=== PATIENT | female | born 1945 | race Caucasian/White ===

== ENCOUNTER 2016-11-23 13:20 | Inpatient (IN) | payer OTHER ==
[2016-11-23] MEDS ORDERED: ASPIRIN EC 325 MG TAB PO ONE ×2 (13:28→13:35)
[2016-11-23] MEDS ORDERED: NS 1,000 ML IV ONE (13:28)
[2016-11-23] MEDS ORDERED: DIAZEPAM 5 MG TAB PO ONE (13:28)
[2016-11-23] MEDS ORDERED: diphenhydrAMINE 25 MG CAP PO ONE ×2 (13:28→13:35)
[2016-11-23] MEDS ORDERED: FAMOTIDINE 20 MG TAB PO ONE (13:28)
[2016-11-23] MEDS ORDERED: FAMOTIDINE 20 MG TAB ONE (13:35)
[2016-11-23] MEDS ORDERED: DIAZEPAM 5 MG TAB ONE (13:35)
--- NOTE | 2016-11-23 13:39 | CPEKG ---
Heart Rate: 71 RR Interval: 845 P-R Interval: 200 QRSD Interval: 90 QT Interval: 428 QTC Interval: 466 P [place]: 41 QRS [place]: -14 T Wave [place]: 67 EKG Severity - ABNORMAL ECG - EKG Impression: SINUS RHYTHM EKG Impression: LEFT VENTRICULAR HYPERTROPHY Electronically Signed By: Bryon Bunch 23-Nov-2016 14:20:18
[2016-11-23 13:43] LABS: HEMATOCRIT 46.4 % (38.0-47.0); HEMOGLOBIN 15.7 g/dL (12.6-16.3); MEAN CELL HEMOGLOBIN 31.8 pg (27.9-34.1); MEAN CELL HEMOGLOBIN CONCENTR. 33.8 g/dL (32.4-36.7); MEAN CELL VOLUME 94.1 fL (81.5-99.8); RED BLOOD CELL COUNT 4.93 10^6/uL (4.18-5.33)
[2016-11-23] MEDS ORDERED: MIDAZOLAM 2 MG/2 ML VIAL ONE (13:54)
[2016-11-23] MEDS ORDERED: fentaNYL 100 MCG/2 ML INJ ONE (13:54)
[2016-11-23] MEDS ORDERED: LIDOCAINE 1% 30 ML SDV ONE (13:54)
[2016-11-23] MEDS ORDERED: VERAPAMIL 5 MG/2 ML VIAL ONE (13:54)
[2016-11-23] MEDS ORDERED: HEPARIN 10,000 UNIT/10 ML MDV ONE (13:54)
[2016-11-23] MEDS ORDERED: IOPAMIDOL (ISOVUE-370) 150 ML BTL IV ONE (13:55)
--- NOTE | 2016-11-23 13:55 | PDGENHP ---
History and Physical - Chief Complaint Severe AI/Moderate - History of Present Illness 71F with symptomatic severe AI and moderate here today for a [facility] to evaluate coronary arteries in preparation for AVR on 11/24/[address] Garduno. Pt states her health has not worsened since last seen in the clinic on 11/08/16. She states she is still easily fatigued when she takes care of things at home. She occasionally experiences light-headedness and her legs continue to have swelling. She denies syncope, CP, palpitations, abdominal pain, worsening edema. History Information - Allergies/Home Medication List Allergies/Adverse Reactions: erythromycin base Allergy (Verified 11/11/16 16:42) NSAIDS (Non-Steroidal Anti-Inflamma Allergy (Verified 11/11/16 16:42) Home Medications: Beclomethasone Qvar 80 [Qvar 80 (*)] 2 puffs IH BID 11/11/16 [Last Taken ] Herbals/Supplements -Info Only 1 ea PO DAILY 11/11/16 [Last Taken Unknown] Losartan Potassium [Cozaar 50 mg (*)] 100 mg PO DAILY 11/11/16 [Last Taken 11/23] Montelukast Sodium [Singulair 10 mg (*)] 10 mg PO DAILY@1800 11/11/16 [Last Taken 11/22/16] Tiotropium Inhaler [Spiriva Handihaler] 18 mcg IH DAILY 11/11/16 [Last Taken ] amLODIPine BESYLATE [Norvasc 5 mg (*)] 5 mg PO DAILY 11/11/16 [Last Taken ] traMADol [Ultram 50 mg (*)] 25 mg PO BID PRN 11/11/16 [Last Taken 11/23/16] Estrogens,Conjugated [Premarin Vaginal (*)] 1 elizabeth VG TUSA 11/23/16 [Last Taken 11/22/16] LORazepam [Ativan (*)] 0.5 mg PO HS 11/23/16 [Last Taken 11/22/16] I have personally reviewed and updated: medical history, social history, surgical history - Past Medical History asthma, CHF (class III), hypertension Additional medical history: varicose veins, spinal stenosis - Surgical History Reports: vascular surgery (vein stripping) Additional surgical history: D&C - Family History Positive for: CAD, myocardial infarction - Social History Smoking Status: Never smoked Alcohol Use: None Drug Use: None Review of Systems ROS: 10pt was reviewed & negative except for what was stated in HPI & below Constitutional: Reports: other (fatigue) EENMT: Reports: no symptoms Cardiac: Reports: edema, lightheadedness Respiratory: Reports: no symptoms Gastrointestinal: Reports: no symptoms Genitourinary: Reports: no symptoms Muscolosketal: Reports: muscle pain (BLE) Skin: Reports: no symptoms Neurological: Reports: no symptoms Hematologic/Lymphatic: Reports: no symptoms Physical Exam Constitutional: no apparent distress, appears nourished, not in pain Eyes: anicteric sclera Ears, Nose, Mouth, Throat: moist mucous membranes, hearing normal, ears appear normal Cardiovascular: regular rate and rhythym, systolic murmur, edema Respiratory: no respiratory distress, no rales or rhonchi, clear to auscultation , expiratory wheeze Gastrointestinal: soft, non-tender abdomen, No tenderness Genitourinary: no bladder fullness Skin: warm, normal color Musculoskeletal: full muscle strength Neurologic: AAOx3 Psychiatric: interacting appropriately, not anxious, not encephalopathic, thought process linear Lab Data & Imaging Review 11/23/16 13:30 11/23/16 13:30 WBC 7.89 10^3/uL (3.80-9.50) 11/23/16 13:30 RBC 4.93 10^6/uL (4.18-5.33) 11/23/16 13:30 Hgb 15.7 g/dL (12.6-16.3) 11/23/16 13:30 Hct 46.4 % (38.0-47.0) 11/23/16 13:30 MCV 94.1 fL (81.5-99.8) 11/23/16 13:30 MCH 31.8 pg (27.9-34.1) 11/23/16 13:30 MCHC 33.8 g/dL (32.4-36.7) 11/23/16 13:30 RDW 13.0 % (11.5-15.2) 11/23/16 13:30 Plt Count 254 10^3/uL (150-400) 11/23/16 13:30 Visualized and Interpreted Chest x-ray results: Yes Chest X-Ray results: no infiltrate Visualized and Interpreted EKG results: Yes EKG Interpretation: Positive for: LVH Assessment & Plan Assessment: 71F with known severe AI/moderate admitted today for C - f/u cath results - will pre-op for 11/24/15
[2016-11-23 13:56] LABS: INR 0.96 (0.83-1.16); PROTIME(PATIENT) 12.7 SEC (12.0-15.0)
[2016-11-23 14:11] LABS: ANION GAP 13 mEq/L (8-16); CALCIUM 9.7 mg/dL (8.5-10.4); CARBON DIOXIDE 26 mEq/l (22-31); CHLORIDE 99 mEq/L (97-110); CHOLESTEROL 310 mg/dL (140-220); CHOLESTEROL/HDL RATIO 2.98 RATIO (1.00-4.44); CREATININE 0.7 mg/dL (0.6-1.0); GLOMERULAR FILTRATION RATE > 60; GLUCOSE 91 mg/dL (70-100); HIGH DENSITY LIPOPROTEIN 104 mg/dL (40-85); LDL/HDL RATIO 1.82 RATIO (1.00-3.22); LOW DENSITY LIPOPROTEIN 189 mg/dL (80-100); MAGNESIUM 1.9 mg/dL (1.6-2.3); NON-HIGH DENSITY LIPOPROTEIN 206 mg/dL (90-129); POTASSIUM 4.1 mEq/L (3.5-5.2); SODIUM 138 mEq/L (134-144); TRIGLYCERIDE 86 mg/dL (35-135); VERY LOW DENSITY LIPOPROTEINS 17 mg/dL (8-25)
[2016-11-23 14:37] LABS: HEMOGLOBIN A1C 5.4 % (4.0-6.0)
[2016-11-23] MEDS ORDERED: ONDANSETRON 4 MG/2 ML VIAL IVP PRN (14:55)
[2016-11-23] MEDS ORDERED: ATROPINE SULFATE 1 MG/10 ML SYR IVP PRN (14:55)
[2016-11-23] MEDS ORDERED: NITROGLYCERIN 0.4 MG BTL SL PRN (14:55)
--- NOTE | 2016-11-23 15:02 | PDDXCAT ---
Diagnostic Cath Note - . Date: 11/23/16 Materials Clerk: Jessica Indication: other (Preoperative prior to planned AVR.) - Procedure Access: right groin Procedure: left heart catheterization, coronary angiography, left ventriculogram - Materials Left Heart Cath size: 5F (5F catheter with 6F sheath.) Left Heart Cath materials: JL3.5, JR4.0, pigtail - Findings-Left Heart Catheterization LM: Normal. LAD: Single principal diagonal branch.50% mid LAD lesion immediately after the diagonal branch. LCX: 2 OM branches. Normal coronary appearance. RCA: Large caliber. Dominant. Large PL. Minimal luminal irregularities. EDP: 154/10/14 mmHg. LVEF: 55%. Normal wall motion. - Findings-Right Heart Catheterization AO: 142/53 mmHg. Complications: None. Estimated blood loss: <50ml Closure method: manual pressure Assessment: 50% mid LAD lesion. Known severe AI. Plan: Planned AVR. Consider ESCOBEDO graft.
[2016-11-23] MEDS ORDERED: ATROPINE SULFATE 1 MG/10 ML SYR ONE (15:03)
[2016-11-23] MEDS ORDERED: traMADol 50 MG TAB PO PRN (17:33)
[2016-11-23] MEDS ORDERED: SENNOSIDES/DOCUSATE SODIUM TAB PO ONE ×2 (18:00)
[2016-11-23] MEDS: MONTELUKAST SODIUM 10 MG TAB PO SCH (18:35)
--- NOTE | 2016-11-23 18:47 | DX ---
Chest, One View Portable, November 23, 2016 at 1359 hours History: Preop open heart surgery. Comparison: Outside [facility] CT chest November 11, 2016 images. Report not available. Findings: Cardiac silhouette is normal in size. Atherosclerotic tortuous aorta. Nodular opacity i n the left lower lobe is partially visualized. No pneumothorax. No pleural effusion. Elevated left hemidiaphragm. No congestive heart failure. Impressions 1. No pneumothorax. 2. Nodular opacity in the left lower lobe persists. Follow up recommended. 3. Several pulmonary nodules are identified on the previous outside CT, and, therefore, a follow-up CT chest in three months is recommended. Please see prior CT report from [facility].
--- NOTE | 2016-11-23 19:50 | US ---
Bilateral Duplex Carotid Sonography Clinical Indications: Preoperative open heart surgery. Technique: The cervical portions of the carotid and vertebral arteries were imaged and interrogated by color and pulsed Doppler. Spectral analysis was performed. Cine clips are stored on PACS. Comparison Study: None relevant. Findings Right Carotid Artery: Right ICA peak systolic velocity = 80 cm/sec Right CCA peak systolic velocity = 60 cm/sec Right ECA peak systolic velocity = 52 cm/sec Right ICA/CCA systolic velocity ratio = 1.3 Velocities correlate to 0-49 % diameter stenosis of the origin of the right internal carotid artery w ith respect to the normal distal internal carotid artery. No significant plaque Left Carotid Artery: Left ICA peak systolic velocity = 119 cm/sec Left CCA peak systolic velocity = 67 cm/sec Left ECA peak systolic velocity = 52 cm/sec Left ICA/CCA systolic velocity ratio = 1.8 Velocities correlate to 0-49 % diameter stenosis of the origin of the left internal carotid artery wi th respect to the normal distal internal carotid artery. Tortuosity but no significant plaque. Vertebral Arteries: Antegrade flow is shown by pulsed Doppler of each vertebral artery. Impression: 1. There is no evidence of a flow-limiting carotid stenosis. 2. Velocities correlate to 0-49 % diameter stenosis of the origin of the right internal carotid arter y. 3.Velocities correlate to 0-49 % diameter stenosis of the origin of the left internal carotid artery. No significant plaque is present. Measurement of carotid stenosis is based on velocity parameters that correlate the residual internal carotid diameter with [place] Symptomatic Carotid Endarterectomy Trial (NASCET) based stenosis levels.
[2016-11-23] MEDS ORDERED: CHLORHEXIDINE GLUC HIBICLENS 118 ML BTL TP SCH ×2 (21:00)
[2016-11-23] MEDS ORDERED: MUPIROCIN 2% 22 GM OINT NS SCH (21:00)
[2016-11-23] MEDS: BECLOMETHASONE QVAR 80 MDI IH SCH (21:20)
[2016-11-23] MEDS: LORazepam 0.5 MG TAB PO SCH (22:33)
[2016-11-23] MEDS: MUPIROCIN 2% 22 GM OINT NS SCH (22:57)
[2016-11-24] MEDS ORDERED: CITRATE DEXTROSE SOLN 500 ML BAG MISC ONE ×2 (06:00)
[2016-11-24] MEDS ORDERED: niCARdipine/NACL 200 ML IV ONE ×2 (06:00)
[2016-11-24] MEDS ORDERED: NOREPINEPHRINE BITARTRATE 16 MG in NS 250 ML IV ONE (06:00)
[2016-11-24] MEDS ORDERED: ceFAZolin 2 GM/DEXTROSE 100 ML IV ONE ×2 (06:00)
[2016-11-24] MEDS ORDERED: VERAPAMIL 5 MG, NITROGLYCERIN 2.5 MG, HEPARIN 500 UNIT, SODIUM BICARBONATE 0.2 MEQ in L... MISC ONE (06:00)
[2016-11-24] MEDS ORDERED: MANNITOL 25% 12.5 GM/50 ML VIAL IV ONE ×2 (06:00)
[2016-11-24] MEDS ORDERED: SODIUM BICARBONATE 20 MEQ, LIDOCAINE 1% 10 ML in NORMOSOL-R 1,000 ML MISC ONE ×2 (06:00)
[2016-11-24] MEDS ORDERED: NS 1,000 ML IV ONE ×2 (06:00)
[2016-11-24] MEDS ORDERED: PHENYLEPHRINE HCL 50 MG in NS 250 ML IV ONE (06:00)
[2016-11-24] MEDS ORDERED: INSULIN REGULAR HUMAN 100 UNIT in NS 100 ML IV ONE (06:00)
[2016-11-24] MEDS ORDERED: AMINOCAPROIC ACID 5 GM/20 ML VIAL IV ONE ×2 (06:00)
[2016-11-24] MEDS ORDERED: PROTAMINE SULFATE 50 MG/5 ML VIAL IVP ONE (06:32)
[2016-11-24] MEDS ORDERED: POTASSIUM Cl (KCl) 20 MEQ/50 ML BAG IV ONE (06:33)
[2016-11-24] MEDS ORDERED: AMINOCAPROIC ACID 5 GM/20 ML VIAL ONE ×2 (06:33→06:35)
[2016-11-24] MEDS ORDERED: CALCIUM CHLORIDE 1 GM/10 ML INJ ONE ×2 (06:33→06:35)
[2016-11-24] MEDS ORDERED: MILRINONE/DEXTROSE/100 ML BAG IV ONE (06:33)
[2016-11-24] MEDS ORDERED: NA BICARBONATE 50 MEQ/50 ML VIAL ONE (06:33)
[2016-11-24] MEDS ORDERED: HEPARIN 10,000 UNIT/10 ML MDV ONE (06:34)
[2016-11-24] MEDS ORDERED: ceFAZolin 1 GM VIAL ONE (06:34)
[2016-11-24] MEDS ORDERED: ADENOSINE 6 MG/2 ML VIAL ONE (06:34)
[2016-11-24] MEDS ORDERED: DOPamine/DEXTROSE/250 ML BAG IV ONE (06:34)
[2016-11-24] MEDS ORDERED: niCARdipine/NACL/200 ML BAG IV ONE (06:34)
[2016-11-24] MEDS ORDERED: AMIODARONE HCL 150 MG/3 ML VIAL ONE ×2 (06:34→06:35)
[2016-11-24] MEDS ORDERED: MAGNESIUM SULFATE 1 GM/2 ML VIAL ONE ×2 (06:35→13:11)
[2016-11-24] MEDS ORDERED: LIDOCAINE 2% 100 MG/5 ML SYR IVP ONE ×2 (06:35→13:11)
[2016-11-24] MEDS ORDERED: ALBUMIN 5% 250 ML BOTTLE IV ONE ×2 (06:35→12:00)
[2016-11-24] MEDS ORDERED: methylPREDNISolone SOD SUCC 1 GM/8 ML VIAL ONE (06:36)
[2016-11-24] MEDS ORDERED: PROPOFOL/EMULSION 500 MG/50 ML BOTTLE IV ONE (07:04)
[2016-11-24] MEDS ORDERED: MIDAZOLAM 2 MG/2 ML VIAL ONE (07:04)
[2016-11-24] MEDS ORDERED: fentaNYL 250 MCG/5 ML INJ ONE ×2 (07:04)
[2016-11-24] MEDS ORDERED: PAPAVERINE HCL 60 MG/2 ML SDV ONE (07:13)
[2016-11-24] MEDS ORDERED: SKIN ADHESIVE (DERMABOND) 1 EACH TP ONE (07:13)
[2016-11-24] MEDS ORDERED: MINERAL OIL 10 ML VIAL TP ONE (07:13)
[2016-11-24] MEDS ORDERED: VERAPAMIL 5 MG/2 ML VIAL ONE (07:13)
[2016-11-24] MEDS ORDERED: LR 1,000 ML IV ONE (07:18)
[2016-11-24] MEDS: BECLOMETHASONE QVAR 80 MDI IH SCH ×2 (09:46→21:27)
[2016-11-24] MEDS ORDERED: MAGNESIUM SULF 2 GM/WATER 50 ML BAG IV ONE (10:15)
[2016-11-24] MEDS: MUPIROCIN 2% 22 GM OINT NS SCH ×2 (11:22→21:49)
[2016-11-24] MEDS ORDERED: D50W 25 GM/50 ML SYR IVP PRN (14:24)
[2016-11-24] MEDS ORDERED: ACETAMINOPHEN 325 MG TAB PO PRN (14:24)
[2016-11-24] MEDS ORDERED: ALBUMIN 5% 250 ML IV PRN (14:24)
[2016-11-24] MEDS ORDERED: PANTOPRAZOLE SODIUM 40 MG in NS 100 ML IV ONE (14:24)
[2016-11-24] MEDS ORDERED: ONDANSETRON DISINTEGRATING 4 MG TAB PO PRN (14:24)
[2016-11-24] MEDS ORDERED: MEPERIDINE 25 MG/ML SYR IVP PRN (14:24)
[2016-11-24] MEDS ORDERED: METOCLOPRAMIDE 10 MG/2 ML VIAL IVP PRN (14:24)
[2016-11-24] MEDS ORDERED: BISACODYL 10 MG SUPP PR PRN (14:24)
[2016-11-24] MEDS ORDERED: ONDANSETRON 4 MG/2 ML VIAL IVP PRN (14:24)
[2016-11-24] MEDS ORDERED: CEPACOL LOZENGE PO PRN (14:24)
[2016-11-24] MEDS ORDERED: MAGNESIUM SULF 2 GM/WATER 50 ML IV ONE (14:24)
[2016-11-24] MEDS ORDERED: LACTULOSE 20 GM/30 ML UDCUP PO PRN (14:24)
[2016-11-24] MEDS ORDERED: SODIUM CL NASAL 45 ML BTL EACHNARE PRN (14:24)
[2016-11-24] MEDS ORDERED: MAGNESIUM HYDROXIDE 30 ML UDCUP PO PRN (14:24)
[2016-11-24] MEDS ORDERED: ACETAMINOPHEN 650 MG SUPP PR PRN (14:24)
[2016-11-24] MEDS ORDERED: INSULIN REGULAR HUMAN 100 UNIT in NS 100 ML IV SCH (14:30)
[2016-11-24] MEDS ORDERED: NS 1,000 ML IV SCH (14:30)
[2016-11-24] MEDS ORDERED: CITRATE DEXTROSE SOLN 500 ML BAG ONE (15:23)
[2016-11-24] MEDS ORDERED: fentaNYL 100 MCG/2 ML INJ ONE (15:29)
--- NOTE | 2016-11-24 16:13 | POSTOPPROG ---
Post Op Note Date of Operation: 11/24/16 Surgeon: Shree Garduno Ferruler: Lucy Rice Anesthesiologist: Gallo Anesthesia: GET(General Endotracheal) Pre-op Diagnosis: AI, ASHD Procedure: aortic root#23 Freestyle, Croft-Lad, Atriclip to [place] Inf/Abcess present in the surg proc area at time of surgery?: No EBL: 500-1000 Complications: paravalvular leak necessitating aortic root replacement Drains: Other (3 blakes)
--- NOTE | 2016-11-24 16:58 | CPEKG ---
Heart Rate: 77 RR Interval: 779 P-R Interval: 192 QRSD Interval: 88 QT Interval: 432 QTC Interval: 489 P [place]: -7 QRS [place]: 64 T Wave [place]: -40 EKG Severity - ABNORMAL ECG - EKG Impression: SINUS RHYTHM EKG Impression: CONSIDER ANTEROSEPTAL INFARCT EKG Impression: BORDERLINE T ABNORMALITIES, INFERIOR LEADS EKG Impression: BORDERLINE PROLONGED QT INTERVAL Electronically Signed By: Michi Hines 26-Nov-2016 13:17:36
[2016-11-24] MEDS ORDERED: DEXMEDETOMIDINE HCL 400 MCG in NS 100 ML IV SCH (17:00)
[2016-11-24 17:03] LABS: BASE EXCESS -3.9 mEq/L (-2.5-2.5); BICARBONATE 21 mEq/L (22-26); MEASURED OXYGEN SATURATION 99 % (92-95); PCO2 35 mmHg (34-38); PO2 140 mmHg (65-75); TCO2 22 mEq/L (23-27)
[2016-11-24 17:04] LABS: END TIDAL CO2 35; O2 CONCENTRATIION 100 % (0-100); P/F RATIO 140 RATIO; SIMV YES
[2016-11-24 17:05] LABS: PATIENT RATE 12; PRESSURE SUPPORT 7
--- NOTE | 2016-11-24 17:29 | DX ---
Portable Chest 16:49 History: Post open heart surgery, first chest x-ray Comparison: Preoperative yesterday Findings: Inspiratory phase is slightly less than yesterday. ET tube present with tip in the distal t rachea at the level of the upper susu. NG tube with tip in the abdomen not shown on this film. Righ t external jugular venous catheter present with tip in the superior vena cava a left chest tube and a mediastinal drain are present. Suspect small amount of left basilar atelectasis. The remainder of th e left and right lung are well aerated. The costophrenic gutters are sharp. Impression: Excellent first postop film. The ET tube is slightly low. Results called to Ligia the patient's ICU nurse at 5:26 PM
[2016-11-24] MEDS: POTASSIUM Cl (KCl) 50 ML IV PRN ×3 (18:10→23:20)
[2016-11-24] MEDS: fentaNYL 100 MCG/2 ML INJ IVP PRN ×4 (18:27→23:21)
[2016-11-24] MEDS: niCARdipine/NACL 200 ML IV SCH ×2 (19:31→23:21)
[2016-11-24 20:38] LABS: BASE EXCESS -2.9 mEq/L (-2.5-2.5); BICARBONATE 22 mEq/L (22-26); MEASURED OXYGEN SATURATION 96 % (92-95); PCO2 39 mmHg (34-38); PO2 86 mmHg (65-75); TCO2 23 mEq/L (23-27)
[2016-11-24 20:39] LABS: CPAP YES; END TIDAL CO2 39; O2 CONCENTRATIION 40 % (0-100); P/F RATIO 215 RATIO; PATIENT RATE 26
[2016-11-24 20:40] LABS: PRESSURE SUPPORT 10
[2016-11-24] MEDS ORDERED: FAMOTIDINE 20 MG/NACL 50 ML IV SCH (21:00)
[2016-11-24] MEDS ORDERED: CHLORHEXIDINE GLUCONATE 15 ML UDL PO SCH (21:00)
[2016-11-24] MEDS ORDERED: SENNOSIDES/DOCUSATE SODIUM TAB PO SCH (21:00)
--- NOTE | 2016-11-24 21:37 | DX ---
Portable Chest 21;02 History: Subcutaneous air, post open heart surgery Comparison: 16:49 earlier Findings: There is a small right upper lung pneumothorax. There is no evidence for tension. A left ch est tube, mediastinal drain and a right external jugular venous catheter remain in place. Left basila r atelectasis has improved. ET tube is in improved position and with tip in the mid trachea. EKG lead s and oxygen apparatus overlies the chest. I do not identify any subcutaneous emphysema. A median sheyla rnotomy wire, CABG clips and atrial appendage clip remain in place. Impression: Slight increase in size of a still small right pneumothorax. Results called to the patient's ICU nurse at 9:36 PM.
[2016-11-24] MEDS: MONTELUKAST SODIUM 10 MG TAB PO SCH (21:49)
[2016-11-24] MEDS: ceFAZolin 2 GM/DEXTROSE 100 ML IV SCH (21:53)
--- NOTE | 2016-11-24 22:58 | GOP ---
[f rep st] OPERATIVE REPORT DATE OF OPERATION: 11/24/2016 SURGEON: Shree Garduno DO HEAD WELL PULLER: Angle Rice. ANESTHESIOLOGIST: Juan Holder. PREOPERATIVE DIAGNOSIS: 1. Aortic insufficiency with class 3 congestive heart failure. 2. Arteriosclerotic heart disease. POSTOPERATIVE DIAGNOSIS: 1. Aortic insufficiency with class 3 congestive heart failure. 2. Arteriosclerotic heart disease. 3. Evidence of perivalvular leak after valve implantation necessitating rearresting the heart and pe rforming an aortic root replacement. PROCEDURE PERFORMED: 1. Aortic root replacement with #23 freestyle prosthesis. 2. Left internal mammary artery to the LAD. 3. AtriClip to the left atrial appendage for exclusion. FINDINGS: Patient was consented for aortic valve replacement for severe symptomatic aortic insuffici ency. She was found to have a 50% proximal LAD lesion at catheterization. She was consented for aorti c valve and bypass as well as ligation of left atrial appendage. DESCRIPTION OF PROCEDURE: She was brought to the operating room, intubated, and monitoring lines wer e placed. She was prepped and draped in sterile classical manner. Transesophageal echo confirmed nora re AI, trace to mild mitral insufficiency, with good LV function. There was no thrombus in the left a trial appendage. Timeout was confirmed with the team. Sternotomy was performed. The mammary was harvested. The patient was heparinized, cannulated in the a scending aorta and right atrium as well as antegrade and retrograde cardioplegic catheters. Cardiopul monary bypass was begun. The aorta was crossclamped with an LV sump placed to prevent distention whil e retrograde cardioplegia was administered. Cardiac arrest was obtained. We then grafted the left int ernal mammary artery to the mid LAD which was an excellent quality vessel and an excellent conduit. I t was tacked to the epicardium. We then measured the patient for a 35 mm AtriClip which was applied t o the left atrial appendage, rendering it flush with the atrial wall. We then opened the aorta in sta ndard fashion, found a heavily calcified trileaflet valve; the leaflet edges were retracted, and ther e was a heavily calcified anulus, particularly down into the mitral curtain. All calcium was removed. We had separation of the mitral valve from the anulus as expected. This was reapproximated with the valve sutures with interrupted 2-0 Tycron pledgeted mattress sutures placed through a 23 mm Magna arturo ve. This was secured in place without difficulty. The aortotomy was closed in a 2 layer fashion. The patient was placed in Trendelenburg. The crossclamp was removed with suction on the ascending aortic vent. Spontaneous cardiac activity was noted to resume. The patient was easily weaned from bypass, at which time, transesophageal echo suggested an unusual d iastolic flow below the valve plane which was initially felt to be some sort of fistula or potentiall y paravalvular leak with deflection of the jet centrally. Multiple cardiologists including Dr. Montoya, Dr. Julian, Dr. Madden and Dr. Bunch reviewed it, and the consensus was that it was likely a canelo valvular leak, although small. I was concerned about hemolysis. For that reason, I resumed cardiopulm onary bypass, arrested the heart with antegrade and retrograde cardioplegia again, reopened the aorto lashonda, and with a probe, found an area where they described that actually looked like a chronic VSD fi stula from just below the aortic valve, below the juncture of the left and right leaflets, below the cusp there which projected into the pulmonary artery itself. I then opened the pulmonary artery and f ound that it was actually not within the pulmonary artery and appeared to track below it. I then used felt reinforced sutures to bring it out through the pulmonary artery below the valve in the outflow tract, closing that leak, what I presume was a VSD from , without difficulty. The pulmonary trupti ry was closed with 5-0 Prolene. The aortotomy was closed with a pericardial patch because of the fria ble nature of her aorta and her age. The crossclamp was removed. In Trendelenburg again she was de-ai red at the apex. She was then weaned from bypass. Unfortunately, echo revealed a persistent defect in that area, and it became apparent that this is probably a perivalvular leak with an aberrant course of the jet because of thickened septum that appeared to be directing perpendicular to the septal wall . For that reason, I decided to rearrest the patient a 3rd time. I excised the entire ascending aorta up to the crossclamp because of its friable nature. I excised the coronary buttons, and removed the previous prosthetic valve and pledgets as well as core knots that were used. This was a very friable tissue, very poor quality. Again, it was heavily calcified requiring extensive debridement before. I then placed large horizontal pledgeted mattress sutures from outside inside through the anulus, throu gh a 23 mm freestyle valve which was rotated 120 degrees. This was secured in place without difficult y. BioGlue was applied. I then excised in the pig's new left coronary sinus, I excised an area for an astomosing the left main which was done with a continuous running 5-0 Prolene without incident. We th en removed the pig's left coronary button which had been rotated 120 degrees and so that now was the pig's right coronary ostia. That was excised and was a direct match and fit for the right coronary ar tariq which was sutured in place with a continuous running 5-0 Prolene suture. The aortotomy was close d with continuous running 3-0 Prolene suture reinforced in several sizes. The crossclamp was then removed a 3rd time with the patient in Trendelenburg with multiple de-airing procedures performed through the LV apex, ascending aorta and LV vent. When no further air was identi fied, the vent was removed. The patient was weaned from bypass. It became evident that there was no f urther defect in that area, and that the valve functioned perfectly. Heparin was then reversed with p rotamine. The cannula was removed and oversewn. Two ventricular pacing wires, 3 mediastinal drains we re placed. Thymic fat and pericardium were closed. Chest was closed in standard fashion. The patient was returned to ICU in stable condition. /[id number]/MODL
[2016-11-25] MEDS: POTASSIUM Cl (KCl) 50 ML IV PRN (00:15)
[2016-11-25] MEDS: fentaNYL 100 MCG/2 ML INJ IVP PRN ×4 (01:18→06:24)
[2016-11-25] MEDS: LORazepam 0.5 MG TAB PO SCH ×2 (01:19→20:54)
[2016-11-25 04:39] LABS: % IMMATURE GRANULYOCYTES 0.4 % (0.0-1.1); ABSOLUTE IMMATURE GRANULOCYTES 0.06 10^3/uL (0.00-0.10); ADD DIFF? NO; ADD MORPH? NO; ADD SCAN? NO; ATYPICAL LYMPHOCYTE FLAG 0 (0-99); FRAGMENT RBC FLAG 0 (0-99); HEMATOCRIT 41.4 % (38.0-47.0); HEMOGLOBIN 14.7 g/dL (12.6-16.3); LEFT SHIFT FLG 30 (0-99); LIPEMIA HEMOLYSIS FLAG 90 (0-99); MEAN CELL HEMOGLOBIN 31.1 pg (27.9-34.1); MEAN CELL HEMOGLOBIN CONCENTR. 35.5 g/dL (32.4-36.7); MEAN CELL VOLUME 87.7 fL (81.5-99.8); MEAN PLATELET VOLUME 10.2 fL (8.7-11.7); PLATELET CLUMPS FLAG 40 (0-99); PLATELET COUNT 139 10^3/uL (150-400); RED BLOOD CELL COUNT 4.72 10^6/uL (4.18-5.33); RED CELL DISTRIBUTION WIDTH 15.8 % (11.5-15.2)
[2016-11-25 04:46] LABS: ANION GAP 7 mEq/L (8-16); CALCIUM 7.6 mg/dL (8.5-10.4); CARBON DIOXIDE 26 mEq/l (22-31); CHLORIDE 110 mEq/L (97-110); CREATININE 0.6 mg/dL (0.6-1.0); GLOMERULAR FILTRATION RATE > 60; GLUCOSE 86 mg/dL (70-100); POTASSIUM 4.3 mEq/L (3.5-5.2); SODIUM 143 mEq/L (134-144)
[2016-11-25] MEDS: ceFAZolin 2 GM/DEXTROSE 100 ML IV SCH ×3 (06:00→22:11)
[2016-11-25] MEDS: HEPARIN 5,000 UNIT/0.5 ML SYR SC SCH ×3 (06:00→22:10)
[2016-11-25] MEDS ORDERED: HEPARIN 5,000 UNIT/0.5 ML SYR SC SCH (06:00)
[2016-11-25] MEDS ORDERED: KETOROLAC 15 MG/1 ML SDV IVP ONE (07:30)
[2016-11-25] MEDS ORDERED: traMADol 50 MG TAB PO PRN (07:35)
[2016-11-25] MEDS ORDERED: FUROSEMIDE 20 MG/2 ML VIAL IVP ONE (07:40)
[2016-11-25] MEDS ORDERED: POTASSIUM CL 10 MEQ TAB PO ONE (07:40)
[2016-11-25] MEDS ORDERED: KETOROLAC 15 MG/1 ML SDV ONE (07:46)
--- NOTE | 2016-11-25 07:50 | SOAPPROG ---
SOAP Progress Note Assessment/Plan: Assessment: POD#1 AVR/root replacment w #23 Medtronic freestyle porcine root, CABG x 1 (EMILY-LAD), AtriClip ligation left atrial appendage Sx severe AI - Standard tissue AVR converted to root replacement for paravalvular leak. 3 pump runs. Kept intubated thru last noc. BP control w cardene. No tachyarrhythmias or backup pacing. No apparent neurologic impairment. Antithrombotic prophylaxis with ASA alone pending stable rhythm. AF prophylaxis with BB. 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 Postop LV systolic fx preserved. Autodiuresing moderate fluid overload with stable renal fx. Diuresis , BB and ACEI as tolerated. Incidental single vessel CAD - s/p CABG1 with arterial graft. Secondary prevention w ASA, BB uptitrated as tolerated, and statin when eating well. Acute expected blood loss anemia with coagulopathy - Expected given multiple CPB runs. Stable s/p 4u PRBC, 2u FFP and 2u Plts. No evidence active bleeding. VTE prophylaxis with SQ hep so long as plt count > 100. RAD - Stable. No post extubation exacerbation. MDIs resumed. Nocturnal hypoxemia - KEVIN suspected by preop pulm eval. Suppl O2 hs rec but insufficient time before surg to get supplies ordered. Formal sleep study planned once recovered from surgery. Plan: Routine POD#1 orders re lines, drains, orals and mobility. Tx to PCU later today. 11/25/16 07:44 Subjective: Doing ok. Feels a bit puffy. Hurting some w deep breaths. No wheezing, nausea or dizziness. Objective: Vital Signs Temp Pulse Resp BP Pulse Ox 37.7 C 83 24 H 126/68 H 96 11/25/16 07:00 11/25/16 07:00 11/25/16 07:00 11/25/16 07:00 11/25/16 07:00 Laboratory Results 11/25/16 04:05 11/25/16 04:05 11/24/16 11/25/16 11/26/16 05:59 05:59 05:59 Intake Total 500 1143.1 Output Total 5720 90 Balance 500 -4576.9 -90 PT 12.7 SEC (12.0-15.0) 11/23/16 13:30 INR 0.96 (0.83-1.16) 11/23/16 13:30 Extubated last night without incident. Modest suppl O2 req. Hypertensive, req low dose cardene. HR and rhythm stable. Excellent UOP. No sig CTOP. CXR -> mild bibasilar atelectasis, no PTX, no pulm vasc congestion. Labs ok. Physical Exam - Physical Exam General Appearance: alert, no apparent distress Respiratory: crackles (left side), other (Blakes x 3 y-d to pleurovac, serosang drainage. +tidal. No air leak) Cardiac/Chest: regular rate, rhythm, other (Sternum grossly stable. Sternotomy CDI. V wires intact.) Abdomen: normal bowel sounds, non-tender, soft Skin: warm/dry Extremities: swelling (1+ gen) ICD10 Worksheet Patient Problems: Problems Problem Status Diagnosed Acute blood loss anemia Acute Consumptive coagulopathy Acute S/P CABG x 1 Acute S/P aortic root replacement Acute Aortic insufficiency Chronic Hypertension Chronic Reactive airway disease Chronic
[2016-11-25] MEDS ORDERED: fentaNYL 25 MCG PATCH TD SCH (08:00)
[2016-11-25] MEDS: BECLOMETHASONE QVAR 80 MDI IH SCH ×2 (08:01→20:28)
[2016-11-25] MEDS: TIOTROPIUM INHALER 18 MCG/DOSE 5 DOSE/MDI IH SCH (08:03)
--- NOTE | 2016-11-25 08:07 | DX ---
Portable Chest 6:17 AM History: Follow-up small right pneumothorax Comparison: Yesterday 21:02 Findings: The patient has been extubated. Lung volumes are somewhat smaller, without postextubation a telectasis. No definite residual right pneumothorax. 2 mediastinal drains and a left basilar chest tu be remain in place. A median sternotomy wire, CABG clips and atrial appendage clip remain in place. N o obvious pleural fluid. Impression: 1. No significant postextubation atelectasis. 2. Resolved right pneumothorax.
[2016-11-25] MEDS: METOPROLOL TARTRATE 25 MG TAB PO SCH ×2 (08:16→20:51)
[2016-11-25] MEDS: HYDROCODONE/APAP 5/325 TAB PO PRN ×3 (10:03→20:44)
[2016-11-25] MEDS: MUPIROCIN 2% 22 GM OINT NS SCH ×2 (10:05→22:11)
--- NOTE | 2016-11-25 11:13 | GCON ---
[f rep st] CONSULTATION RAILROAD SIGNAL TECHNICIAN CONSULTATION. DATE OF CONSULTATION: 11/25/2016 The patient was examined postoperatively after receiving aortic valve replacement. HISTORY OF PRESENT ILLNESS: The patient is a very pleasant 71-year-old white female with extensive p ast medical history, including asthma, congestive heart failure, hypertension, varicose veins, spinal stenosis. She underwent aortic valve replacement complicated by a perivalvular leak, necessitating aortic root replacement. Currently, patient is sitting up in a chair. Pain is tolerated. She denie s any shortness of breath, cough, or production of sputum. Again, she is resting comfortably. PAST MEDICAL HISTORY: Again, significant for aortic stenosis, asthma, congestive heart failure, hype rtension, varicose veins, spinal stenosis. PAST SURGICAL HISTORY: Vein stripping. ALLERGIES: No known allergies. MEDICATIONS: No medications. SOCIAL HISTORY: Never smoked. She has never smoked cigarettes. Does not drink alcohol. She has go od family support. PHYSICAL EXAM: VITAL SIGNS: Blood pressure 135/75, pulse 85, respiration 19, temperature 37.6, oxyg en saturation 95% on 3 L. GENERAL: She is a very pleasant 71-year-old white female who is resting c omfortably in no acute distress. HEENT: Eyes: PERRL, EOMI. Throat shows no erythema nor tonsillar hypertrophy. NECK: Supple. No cervical adenopathy. HEART: Regular rate and rhythm with a 3/6 sy stolic murmur at the left sternal border without radiation. LUNGS: Diminished breath sounds. A few bibasilar crackles, but no wheeze. ABDOMEN: Soft, nontender. Bowel sounds are present in all 4 qu adrants. EXTREMITIES: No clubbing, cyanosis, or edema. LABORATORIES: White count is 13.5, hemoglobin 13, hematocrit 41, platelet count is 139. Sodium 143, potassium 4.2, chloride 105, CO2 is 26, BUN is 11, creatinine 0.6, glucose is 126. IMPRESSION: 1. Status post aortic valve replacement complicated by a perivalvular leak, necessitating an aortic root replacement. 2. Respiratory: Stable off mechanical ventilation. 3. History of severe aortic insufficiency. 4. Probable obstructive sleep apnea. 5. Hypertension. 6. Congestive heart failure. 7. History of asthma. RECOMMENDATIONS: 1. Adequate pain control. 2. DVT and PE prophylaxis, holding anticoagulation for now. 3. Aggressive blood sugar control. 4. Early ambulation. 5. Adequate nutrition. Thank you very much. /[id number]/MODL
[2016-11-25] MEDS: traMADol 50 MG TAB PO PRN (11:57)
[2016-11-25] MEDS: OXYCODONE/APAP 5/325 TAB PO PRN ×2 (13:27→18:33)
[2016-11-25 14:14] LABS: ANION GAP 6 mEq/L (8-16); CALCIUM 7.4 mg/dL (8.5-10.4); CARBON DIOXIDE 29 mEq/l (22-31); CHLORIDE 104 mEq/L (97-110); CREATININE 0.7 mg/dL (0.6-1.0); GLOMERULAR FILTRATION RATE > 60; GLUCOSE 128 mg/dL (70-100); POTASSIUM 4.3 mEq/L (3.5-5.2); SODIUM 139 mEq/L (134-144)
[2016-11-25] MEDS: PANTOPRAZOLE SODIUM 40 MG TAB PO SCH (15:20)
[2016-11-25] MEDS: POLYETHYLENE GLYCOL 3350 17 GM PKT PO PRN (18:28)
[2016-11-25] MEDS: MONTELUKAST SODIUM 10 MG TAB PO SCH (18:29)
[2016-11-25] MEDS: SENNOSIDES/DOCUSATE SODIUM TAB PO SCH (20:45)
[2016-11-25] MEDS ORDERED: AMIODARONE HCL 200 ML IV ONE (23:50)
[2016-11-25] MEDS ORDERED: AMIODARONE HCL 100 ML IV ONE (23:50)
[2016-11-26] MEDS: HYDROCODONE/APAP 5/325 TAB PO PRN ×2 (02:46→20:05)
[2016-11-26] MEDS ORDERED: AMIODARONE HCL 540 MG in D5W 300 ML IV ONE (06:00)
[2016-11-26] MEDS: ceFAZolin 2 GM/DEXTROSE 100 ML IV SCH (06:07)
[2016-11-26] MEDS: HEPARIN 5,000 UNIT/0.5 ML SYR SC SCH (06:07)
[2016-11-26 06:30] LABS: HEMOGLOBIN 12.2 g/dL (12.6-16.3); MEAN CELL HEMOGLOBIN 31.5 pg (27.9-34.1); MEAN CELL HEMOGLOBIN CONCENTR. 33.9 g/dL (32.4-36.7); RED BLOOD CELL COUNT 3.87 10^6/uL (4.18-5.33); RED CELL DISTRIBUTION WIDTH 15.9 % (11.5-15.2)
[2016-11-26 06:46] LABS: ANION GAP 6 mEq/L (8-16); CALCIUM 7.5 mg/dL (8.5-10.4); CARBON DIOXIDE 29 mEq/l (22-31); CHLORIDE 101 mEq/L (97-110); CREATININE 0.8 mg/dL (0.6-1.0); GLOMERULAR FILTRATION RATE > 60; GLUCOSE 121 mg/dL (70-100); POTASSIUM 4.4 mEq/L (3.5-5.2); SODIUM 136 mEq/L (134-144)
[2016-11-26] MEDS: PANTOPRAZOLE SODIUM 40 MG TAB PO SCH (08:05)
[2016-11-26] MEDS: POLYETHYLENE GLYCOL 3350 17 GM PKT PO PRN (08:05)
[2016-11-26] MEDS: OXYCODONE/APAP 5/325 TAB PO PRN (08:05)
[2016-11-26] MEDS: SENNOSIDES/DOCUSATE SODIUM TAB PO SCH ×2 (08:05→20:06)
[2016-11-26] MEDS: traMADol 50 MG TAB PO PRN (08:05)
[2016-11-26] MEDS: METOPROLOL TARTRATE 25 MG TAB PO SCH ×2 (08:06→20:06)
[2016-11-26] MEDS: BECLOMETHASONE QVAR 80 MDI IH SCH ×2 (08:10→22:01)
[2016-11-26] MEDS: TIOTROPIUM INHALER 18 MCG/DOSE 5 DOSE/MDI IH SCH (08:11)
--- NOTE | 2016-11-26 08:36 | SOAPPROG ---
SOAP Progress Note Assessment/Plan: POD#2 Root replacment w #23 Medtronic freestyle porcine root, CABG x 1 (EMILY-LAD ), AtriClip ligation left atrial appendage Severe AI s/p #23 Medtronic freestyle porcine root - CTs x3 d/c'd this AM - Pain mgmt - OOB/ambulation CAD s/p CABGx1 with arterial graft - ASA/BB/Statin Postoperative atrial fibrillation - Amiodarone/BB - Eliquis for thromboprophylaxis. 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 - Diuresis/BB/ACEI as tolerated. Acute expected blood loss anemia with coagulopathy - Stable RAD - MDIs resumed Nocturnal hypoxemia secondary to suspected KEVIN - Formal sleep study planned once recovered from surgery. Disposition - Plan for rehab placement Subjective: Pt c/o pleuritic pain with some dyspnea. Denies abdominal pain. Objective: Vital Signs Temp Pulse Resp BP Pulse Ox 36.6 C 114 H 20 100/60 90 L 11/26/16 08:00 11/26/16 08:06 11/26/16 08:00 11/26/16 08:06 11/26/16 08:00 Laboratory Results 11/26/16 06:21 11/26/16 06:21 11/25/16 11/26/16 11/27/16 05:59 05:59 05:59 Intake Total 1143.1 1620 Output Total 5720 1855 100 Balance -4576.9 -235 -100 PT 12.7 SEC (12.0-15.0) 11/23/16 13:30 INR 0.96 (0.83-1.16) 11/23/16 13:30 Physical Exam - Physical Exam General Appearance: alert, mild distress EENT: No scleral icterus (R), No scleral icterus (L) Neck: normal inspection Respiratory: lungs clear, No crackles, No rhonchi, No wheezing Cardiac/Chest: irregularly irregular, No systolic murmur Abdomen: non-tender, soft, No distended Skin: normal color, warm/dry Extremities: non-tender, swelling (minimal b/l hands), No pedal edema Neuro/Psych: no motor/sensory deficits, alert, normal mood/affect, oriented x 3 ICD10 Worksheet Patient Problems: Problems Problem Status Diagnosed Acute blood loss anemia Acute Consumptive coagulopathy Acute S/P CABG x 1 Acute S/P aortic root replacement Acute Aortic insufficiency Chronic Hypertension Chronic Reactive airway disease Chronic
--- NOTE | 2016-11-26 08:46 | DX ---
Portable Chest - November 25, 2016 at 0651 hours History: Follow-up small right pneumothorax. Recent open heart surgery. Comparison: Portable chest November 25, 2016 at November 24, 2016. Findings: A small right apical pneumothorax appears slightly larger than on November 14, 2016. It may h ave been obscured on the interval film by overlying catheters. Bilateral chest tubes, mediastinal camilo in, and right internal jugular central venous catheter are stable. Left basilar atelectasis is unchan ged. Cardiomediastinal silhouette is stable. Left atrial appendage clip is noted. The bones are stabl e. Impression: 1. Small right apical pneumothorax, minimally increased since November 24, 2016. 2. Mild left basilar atelectasis. Findings discussed with James the patient's nurse today at 0841 hours.
[2016-11-26] MEDS ORDERED: METOPROLOL TARTRATE 25 MG TAB PO ONE (09:00)
[2016-11-26] MEDS ORDERED: AMIODARONE HCL 100 ML IV ONE (09:41)
[2016-11-26] MEDS: APIXABAN 2.5 MG TAB PO SCH ×2 (10:23→20:06)
[2016-11-26] MEDS: MONTELUKAST SODIUM 10 MG TAB PO SCH (18:57)
[2016-11-26] MEDS: LORazepam 0.5 MG TAB PO SCH (20:05)
[2016-11-26] MEDS: AMIODARONE HCL 200 MG TAB PO SCH (20:06)
[2016-11-27] MEDS: HYDROCODONE/APAP 5/325 TAB PO PRN ×3 (05:01→18:21)
[2016-11-27 05:09] LABS: HEMATOCRIT 35.3 % (38.0-47.0); HEMOGLOBIN 11.9 g/dL (12.6-16.3); MEAN CELL HEMOGLOBIN 31.1 pg (27.9-34.1); MEAN CELL HEMOGLOBIN CONCENTR. 33.7 g/dL (32.4-36.7); MEAN CELL VOLUME 92.2 fL (81.5-99.8); RED BLOOD CELL COUNT 3.83 10^6/uL (4.18-5.33); RED CELL DISTRIBUTION WIDTH 14.8 % (11.5-15.2)
[2016-11-27] MEDS: METOPROLOL TARTRATE 25 MG TAB PO SCH ×2 (07:54→20:27)
[2016-11-27] MEDS: traMADol 50 MG TAB PO PRN (07:58)
[2016-11-27] MEDS: PANTOPRAZOLE SODIUM 40 MG TAB PO SCH (07:59)
[2016-11-27] MEDS: SENNOSIDES/DOCUSATE SODIUM TAB PO SCH ×2 (07:59→20:30)
[2016-11-27] MEDS: AMIODARONE HCL 200 MG TAB PO SCH ×2 (08:00→20:27)
[2016-11-27] MEDS: APIXABAN 2.5 MG TAB PO SCH ×2 (08:02→09:56)
--- NOTE | 2016-11-27 09:00 | SOAPPROG ---
SOAP Progress Note Assessment/Plan: POD#3 Root replacment w #23 Medtronic freestyle porcine root, CABG x 1 (EMILY-LAD ), AtriClip ligation left atrial appendage Severe AI s/p #23 Medtronic freestyle porcine root - Pain mgmt - OOB/ambulation CAD s/p CABGx1 with arterial graft - ASA/BB/Statin Postoperative atrial fibrillation - CHADS2-VASC 5 - Amiodarone/BB - Coumadin for thromboprophylaxis Acute expected blood loss anemia with coagulopathy, thrombocytopenia - Platelets lower today - HIT panel pending - Will start Coumadin today for thromboprophylaxis Valvular cardiomyopathy with LVDD - Functional class 3. - Diuresis/BB/ACEI as tolerated. RAD - MDIs resumed Nocturnal hypoxemia secondary to suspected KEVIN - Formal sleep study planned once recovered from surgery. Disposition - Plan for rehab placement Subjective: c/o palpitations. No SOB. Pain well-controlled. Objective: Vital Signs Temp Pulse Resp BP Pulse Ox 37.2 C 74 23 H 114/68 97 11/27/16 08:00 11/27/16 08:00 11/27/16 08:00 11/27/16 08:00 11/27/16 08:00 Laboratory Results 11/27/16 04:55 11/26/16 06:21 11/26/16 11/27/16 11/28/16 05:59 05:59 05:59 Intake Total 1620 1081 200 Output Total 1855 550 100 Balance -235 531 100 PT 12.7 SEC (12.0-15.0) 11/23/16 13:30 INR 0.96 (0.83-1.16) 11/23/16 13:30 Physical Exam - Physical Exam General Appearance: WD/WN, alert, no apparent distress EENT: No scleral icterus (R), No scleral icterus (L) Neck: normal inspection Respiratory: lungs clear, normal breath sounds, No respiratory distress Cardiac/Chest: irregularly irregular, No systolic murmur Abdomen: non-tender, soft, No distended Skin: normal color, warm/dry Extremities: pedal edema (Trace B/L), No swelling Neuro/Psych: no motor/sensory deficits, alert, normal mood/affect, oriented x 3 ICD10 Worksheet Patient Problems: Problems Problem Status Diagnosed Acute blood loss anemia Acute Consumptive coagulopathy Acute S/P CABG x 1 Acute S/P aortic root replacement Acute Aortic insufficiency Chronic Hypertension Chronic Reactive airway disease Chronic
[2016-11-27] MEDS ORDERED: METOPROLOL TARTRATE 25 MG TAB PO ONE (09:15)
[2016-11-27] MEDS ORDERED: AMIODARONE HCL 100 ML IV ONE (09:15)
[2016-11-27] MEDS: BECLOMETHASONE QVAR 80 MDI IH SCH ×2 (09:16→21:29)
[2016-11-27] MEDS: TIOTROPIUM INHALER 18 MCG/DOSE 5 DOSE/MDI IH SCH (09:16)
--- NOTE | 2016-11-27 10:20 | DX ---
Portable AP chest. November 27, 2016At 9:46 AM History: Follow-up chest surgery. Comparison examination: November 26, 2016. Findings: Bilateral lower lobe atelectasis is again noted. Left chest tube and [place]-Beata catheter hav e been removed from prior study. Right jugular central venous catheter is stable. Small right apical pneumothorax has decreased in size. Cardiac silhouette remains moderately prominent. Impression: Status post open heart surgery. Stable bilateral lower lobe atelectasis. Decreasing right apical pneumothorax. Moderate cardiac enlargement.
[2016-11-27 10:23] LABS: INR 1.24 (0.83-1.16); PROTIME(PATIENT) 15.6 SEC (12.0-15.0)
[2016-11-27] MEDS ORDERED: WARFARIN SODIUM 3 MG TAB PO ONE (16:00)
[2016-11-27] MEDS: MONTELUKAST SODIUM 10 MG TAB PO SCH (17:31)
[2016-11-27] MEDS ORDERED: FUROSEMIDE 40 MG/4 ML VIAL IVP ONE (19:58)
[2016-11-27] MEDS: LORazepam 0.5 MG TAB PO SCH (20:31)
[2016-11-28] MEDS: HYDROCODONE/APAP 5/325 TAB PO PRN ×3 (05:00→20:14)
[2016-11-28 05:30] LABS: HEMATOCRIT 35.3 % (38.0-47.0); HEMOGLOBIN 11.9 g/dL (12.6-16.3); MEAN CELL HEMOGLOBIN 31.6 pg (27.9-34.1); MEAN CELL HEMOGLOBIN CONCENTR. 33.7 g/dL (32.4-36.7); MEAN CELL VOLUME 93.9 fL (81.5-99.8); RED BLOOD CELL COUNT 3.76 10^6/uL (4.18-5.33); RED CELL DISTRIBUTION WIDTH 14.3 % (11.5-15.2)
[2016-11-28 05:32] LABS: INR 1.33 (0.83-1.16); PROTIME(PATIENT) 16.5 SEC (12.0-15.0)
[2016-11-28 05:41] LABS: ANION GAP 5 mEq/L (8-16); CALCIUM 7.4 mg/dL (8.5-10.4); CARBON DIOXIDE 29 mEq/l (22-31); CHLORIDE 94 mEq/L (97-110); CREATININE 0.7 mg/dL (0.6-1.0); GLOMERULAR FILTRATION RATE > 60; GLUCOSE 99 mg/dL (70-100); POTASSIUM 4.3 mEq/L (3.5-5.2); SODIUM 128 mEq/L (134-144)
[2016-11-28] MEDS ORDERED: FUROSEMIDE 20 MG/2 ML VIAL IVP ONE (07:59)
[2016-11-28] MEDS: CALCIUM CARBONATE 500 MG CHEWABLE TAB PO SCH ×3 (08:31→21:19)
[2016-11-28] MEDS: AMIODARONE HCL 200 MG TAB PO SCH ×2 (08:31→20:14)
[2016-11-28] MEDS: METOPROLOL TARTRATE 25 MG TAB PO SCH (08:31)
[2016-11-28] MEDS: PANTOPRAZOLE SODIUM 40 MG TAB PO SCH (08:31)
[2016-11-28] MEDS: BECLOMETHASONE QVAR 80 MDI IH SCH ×2 (08:32→20:50)
[2016-11-28] MEDS: TIOTROPIUM INHALER 18 MCG/DOSE 5 DOSE/MDI IH SCH (08:33)
[2016-11-28] MEDS ORDERED: METOPROLOL TARTRATE 5 MG/5 ML INJ IVP PRN ×2 (08:56→09:30)
--- NOTE | 2016-11-28 09:25 | SOAPPROG ---
SOAP Progress Note Assessment/Plan: Assessment: POD#4 AVR/root replacment w #23 Medtronic freestyle porcine root, CABG x 1 (EMILY-LAD), AtriClip ligation left atrial appendage Sx severe AI - Standard tissue AVR converted to root replacement for paravalvular leak. 3 pump runs remarkably well tolerated. Tubes and wires out. Antithrombotic prophylaxis as per rhythm. 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 Postop LV systolic fx preserved. Diuresing moderate fluid overload with stable renal fx. Lasix, BB and ACEI as tolerated. Inpt rehab for reconditioning. Incidental single vessel CAD - s/p CABG1 with arterial graft. Secondary prevention w statin and BB uptitrated as tolerated. ASA avoided d/t hx NSAID related gastritis. Postop PAF - Refractory to amiodarone and escalating doses BB. Antithrombotic prophylaxis with Coumadin for [id number] score of 5. Acute expected blood loss anemia with coagulopathy and thrombocytopenia - Expected given multiple CPB runs. Ongoing thrombocytopenia s/p 4u PRBC, 2u FFP and 2u Plts. No evidence active bleeding. Precautionary HIT sent, results pending. VTE prophylaxis as per rhythm. RAD - Stable. No post extubation exacerbation. MDIs resumed. Nocturnal hypoxemia - KEVIN suspected by preop pulm eval. Suppl O2 hs rec but insufficient time before surg to get supplies ordered. Formal sleep study planned once recovered from surgery. Plan: Inc oral metoprolol to 50 mg BID. Adjunctive IV metoprolol 2.5 mg prn RVR. Cont daily diuresis with 20mg IV lasix. Coumadin 3 mg today. Baseline postop echo today. Dispo - Inpt rehab, ? [facility], in 2-3 days. 11/28/16 09:18 Subjective: Grouchy d/t multiple voids/bathroom runs last night interrupting sleep. Does however feel a little less puffy. Aware of palpitations. Able to walk length of hallway before legs "give out". Satisfactory analgesia. +BMs. Objective: Vital Signs Temp Pulse Resp BP Pulse Ox 36.9 C 87 16 106/79 94 11/28/16 08:00 11/28/16 08:31 11/28/16 08:00 11/28/16 08:31 11/28/16 08:00 Laboratory Results 11/28/16 05:05 11/28/16 05:05 11/27/16 11/28/16 11/29/16 05:59 05:59 05:59 Intake Total 1081 1940 Output Total 550 920 Balance 531 1020 PT 16.5 SEC (12.0-15.0) H 11/28/16 05:05 INR 1.33 (0.83-1.16) H 11/28/16 05:05 Physical Exam - Physical Exam General Appearance: alert, no apparent distress Respiratory: decreased breath sounds (bases) Cardiac/Chest: irregularly irregular, other (Sternum grossly stable. Sternotomy and CT sites ok. Vwires clipped at skin.) Abdomen: non-tender, soft Skin: warm/dry Extremities: swelling (1+ gen) ICD10 Worksheet Patient Problems: Problems Problem Status Diagnosed Acute blood loss anemia Acute Consumptive coagulopathy Acute S/P CABG x 1 Acute S/P aortic root replacement Acute Aortic insufficiency Chronic Hypertension Chronic Reactive airway disease Chronic
[2016-11-28] MEDS ORDERED: METOPROLOL TARTRATE 25 MG TAB PO ONE (10:00)
--- NOTE | 2016-11-28 13:48 | ECHO ---
[id number] + + [id number] : : [place] [id number] : : [phone] + + Adult Echocardiographic Report + ------+ :Name: Manuel HOOK Date: 11/28/2016 09:43 AM : : Hospital Admission Number: [id number] Jose Danielatio n: 209: :: 1945 Gender: Female Height: 62 in : :Age: 71 yrs Race: WH Weight: 158 lb : :Reason For Study: S/P #23 medtronic marcostyle root : :replacement BSA: 1.7 meters 2 : + ------+ MMode/2D Measurements & Calculations IVSd: 0.78 cm LVIDd: 4.1 cm EDV(Teich): Ao root diam: LVPWd: 1.1 cm 73.6 ml 3.3 cm LA dimension: 4.2 cm LVLd ap4: 7.5 cm SV(MOD-sp4): EDV(MOD-sp4): 29.0 ml 62.0 ml LVLs ap4: 7.5 cm ESV(MOD-sp4): 33.0 ml EF(MOD-sp4): 46.8 % Normal Measurement Values: + + :LVIDd (3.5-5.7cm) IVSd (0.6-1.1cm) LVPWd (0.6-1.1cm) Aortic Root (2.0-3.7cm)Left Atrium (1.5-4.0cm): :LV Vol(d) (76-115ml) LV Vol(s) (29-48ml) Ejec Fraction (50-65%)PV Forest (0.6- 1.2m/s) TV Forest (0.4-1.0m/s) : :MV E Forest (0.8-1.0m/s)MV A Forest (0.3-1.0m/s)LVOT Forest (0.7-1.2m/s) Asc Ao Forest ( 0.9-1.8m/s) : + + Doppler Measurements & Calculations MV E max forest: 55.8 cm/sec Ao mean P.7 mmHg TR max forest: 210.5 cm/sec MV A max forest: 66.1 cm/sec Ao V2 mean: 138.3 cm/sec TR max P.7 mmHg MV E/A: 0.84 Ao V2 VTI: 32.1 cm RAP systole: 10.0 mmHg RVSP(TR): 27.7 mmHg Left Ventricle The left ventricle is normal in size. There is mild concentric left ventricular hypertrophy. Ejection Fraction = 45-50%. Septal motion is consistent with post-operative state. Right Ventricle The right ventricle is normal size. The right ventricular systolic function is mildly reduced. Atria The left atrium is mildly dilated. Right atrial size is normal. Mitral Valve There is mild mitral annular calcification. There is no evidence of mitral valve prolapse. There is no mitral valve stenosis. There is mild mitral regurgitation. Tricuspid Valve Normal tricuspid valve. There is moderate tricuspid regurgitation. Right ventricular systolic pressure is normal. Aortic Valve There is no aortic insufficiency. There is a bioprosthetic aortic valve. AV mean PG is 9mmHG. Pulmonic Valve The pulmonic valve is not well visualized. There is no pulmonic valvular regurgitation. Great Vessels The aortic root is normal size. Pericardium/Pleural There is no pericardial effusion. Left pleural effusion. Conclusion A complete two-dimensional transthoracic echocardiogram was performed (2D, M-mode, Doppler and color flow Doppler). There is mild concentric left ventricular hypertrophy. Septal motion is consistent with post-operative state. LV systolic function is mildly reduced Ejection Fraction = 45-50%. RV is normal in size with mildly reduced systolic function The left atrium is mildly dilated. There is mild mitral annular calcification. There is mild mitral regurgitation. There is moderate tricuspid regurgitation. Right ventricular systolic pressure is normal. There is a bioprosthetic aortic valve. AV mean PG is 9mmHG. Left pleural effusion. There is no pericardial effusion. Compared with 10/21/2016 (CHEVY), the aortic valve has been replaced. Post op septal motion now present and LVEF slightly depressed Final Reading Physician: Dr Iqra Montoya electronically signed on 11/28/2016 01:47 PM Ordering Physician: Matti Sainz Performed By: Cira Goodwin [facility]
[2016-11-28 15:35] LABS: HEPARIN INDUCED ANTIBODY Negative (Negative); REACTIVITY 5 % (<20)
[2016-11-28] MEDS ORDERED: WARFARIN SODIUM 3 MG TAB PO ONE (16:00)
[2016-11-28] MEDS: MONTELUKAST SODIUM 10 MG TAB PO SCH (17:10)
[2016-11-28] MEDS: LORazepam 0.5 MG TAB PO SCH (20:14)
[2016-11-28] MEDS: METOPROLOL TARTRATE 50 MG TAB PO SCH (20:14)
[2016-11-29] MEDS: HYDROCODONE/APAP 5/325 TAB PO PRN ×2 (03:20→17:09)
[2016-11-29 05:45] LABS: HEMOGLOBIN 11.3 g/dL (12.6-16.3); MEAN CELL HEMOGLOBIN 32.2 pg (27.9-34.1); MEAN CELL HEMOGLOBIN CONCENTR. 34.2 g/dL (32.4-36.7); RED BLOOD CELL COUNT 3.51 10^6/uL (4.18-5.33); RED CELL DISTRIBUTION WIDTH 13.9 % (11.5-15.2)
[2016-11-29 06:07] LABS: INR 2.38 (0.83-1.16); PROTIME(PATIENT) 26.2 SEC (12.0-15.0)
[2016-11-29 06:10] LABS: ANION GAP 3 mEq/L (8-16); CALCIUM 7.7 mg/dL (8.5-10.4); CARBON DIOXIDE 30 mEq/l (22-31); CHLORIDE 97 mEq/L (97-110); CREATININE 0.6 mg/dL (0.6-1.0); GLOMERULAR FILTRATION RATE > 60; GLUCOSE 93 mg/dL (70-100); POTASSIUM 4.1 mEq/L (3.5-5.2); SODIUM 130 mEq/L (134-144)
[2016-11-29] MEDS: METOPROLOL TARTRATE 50 MG TAB PO SCH ×2 (07:57→20:56)
[2016-11-29] MEDS: AMIODARONE HCL 200 MG TAB PO SCH ×2 (07:57→20:58)
[2016-11-29] MEDS: PANTOPRAZOLE SODIUM 40 MG TAB PO SCH (07:57)
[2016-11-29] MEDS: CALCIUM CARBONATE 500 MG CHEWABLE TAB PO SCH ×3 (07:57→20:58)
[2016-11-29] MEDS: POLYETHYLENE GLYCOL 3350 17 GM PKT PO PRN (08:06)
--- NOTE | 2016-11-29 08:09 | SOAPPROG ---
SOAP Progress Note Assessment/Plan: POD#5 Root replacment w #23 Medtronic freestyle porcine root, CABG x 1 (EMILY-LAD ), AtriClip ligation left atrial appendage Severe AI s/p #23 Medtronic freestyle porcine root - OOB/ambulation - DVT prophylaxis with Coumadin CAD s/p CABGx1 with arterial graft - BB/Statin - No ASA secondary to NSAID allergy, thromboprophylaxis with Coumadin Postoperative atrial fibrillation - CHADS2-VASC 5 - Amiodarone/BB - Coumadin for thromboprophylaxis goal 2-3 - will hold today's dose d/t jump in INR Acute expected blood loss anemia with coagulopathy, thrombocytopenia - Platelets trending higher, HIT panel negative, monitor Valvular cardiomyopathy with LVDD - Functional class 3. - Diuresis/BB/ACEI as tolerated. RAD - MDIs resumed Nocturnal hypoxemia secondary to suspected KEVIN - Formal sleep study planned once recovered from surgery. Disposition - Plan for rehab placement Monday11/29/16 08:06 11/29/16 11:47 Subjective: Pt feels tired. Minimal SOB. Pain well-controlled. Has palpitations when she ambulates. Objective: Vital Signs Temp Pulse Resp BP Pulse Ox 36.7 C 71 18 119/74 94 11/29/16 04:00 11/29/16 04:00 11/29/16 04:00 11/29/16 04:00 11/29/16 04:00 Laboratory Results 11/29/16 05:20 11/29/16 05:20 11/28/16 11/29/16 11/30/16 05:59 05:59 05:59 Intake Total 1940 1520 Output Total 920 1400 Balance 1020 120 PT 26.2 SEC (12.0-15.0) H D 11/29/16 05:20 INR 2.38 (0.83-1.16) H 11/29/16 05:20 Physical Exam - Physical Exam General Appearance: WD/WN, alert, no apparent distress EENT: No scleral icterus (R), No scleral icterus (L) Neck: normal inspection Respiratory: chest non-tender, lungs clear, normal breath sounds Cardiac/Chest: regular rate, rhythm, irregularly irregular, No systolic murmur Abdomen: non-tender, soft, No distended Skin: normal color, warm/dry Extremities: pedal edema (+2), No swelling Neuro/Psych: no motor/sensory deficits, alert, normal mood/affect, oriented x 3 ICD10 Worksheet Patient Problems: Problems Problem Status Diagnosed Acute blood loss anemia Acute Consumptive coagulopathy Acute Postoperative atrial fibrillation Acute S/P CABG x 1 Acute S/P aortic root replacement Acute Aortic insufficiency Chronic Hypertension Chronic Reactive airway disease Chronic
[2016-11-29] MEDS: BECLOMETHASONE QVAR 80 MDI IH SCH ×2 (09:07→20:19)
[2016-11-29] MEDS: TIOTROPIUM INHALER 18 MCG/DOSE 5 DOSE/MDI IH SCH (09:07)
[2016-11-29] MEDS: FUROSEMIDE 40 MG/4 ML VIAL IVP SCH ×3 (09:11→13:56)
[2016-11-29] MEDS: POTASSIUM CL 20 MEQ TAB PO SCH ×2 (09:11→13:56)
[2016-11-29] MEDS ORDERED: METOPROLOL TARTRATE 5 MG/5 ML INJ IVP ONE (09:25)
[2016-11-29] MEDS ORDERED: AMIODARONE HCL 100 ML IV ONE (13:27)
[2016-11-29] MEDS ORDERED: METOPROLOL TARTRATE 25 MG TAB PO ONE (13:27)
[2016-11-29] MEDS: ATORVASTATIN CALCIUM 20 MG TAB PO SCH (13:56)
[2016-11-29] MEDS: MONTELUKAST SODIUM 10 MG TAB PO SCH (17:09)
[2016-11-29] MEDS: LORazepam 0.5 MG TAB PO SCH (20:58)
[2016-11-30] MEDS: HYDROCODONE/APAP 5/325 TAB PO PRN ×4 (00:10→21:12)
[2016-11-30 03:54] LABS: POTASSIUM 4.2 mEq/L (3.5-5.2)
[2016-11-30 04:03] LABS: INR 2.21 (0.83-1.16); PROTIME(PATIENT) 24.7 SEC (12.0-15.0)
[2016-11-30] MEDS: POLYETHYLENE GLYCOL 3350 17 GM PKT PO PRN (05:58)
[2016-11-30] MEDS: FUROSEMIDE 40 MG/4 ML VIAL IVP SCH ×2 (08:54→15:14)
[2016-11-30] MEDS: POTASSIUM CL 20 MEQ TAB PO SCH ×2 (08:54→15:14)
[2016-11-30] MEDS: BECLOMETHASONE QVAR 80 MDI IH SCH ×2 (08:54→20:56)
[2016-11-30] MEDS: METOPROLOL TARTRATE 50 MG TAB PO SCH ×2 (08:54→21:09)
[2016-11-30] MEDS: PANTOPRAZOLE SODIUM 40 MG TAB PO SCH (08:54)
[2016-11-30] MEDS: ATORVASTATIN CALCIUM 20 MG TAB PO SCH (08:54)
[2016-11-30] MEDS: AMIODARONE HCL 200 MG TAB PO SCH ×2 (08:54→21:11)
--- NOTE | 2016-11-30 09:05 | SOAPPROG ---
[id number]), AtriClip ligation left atrial appendage Sx severe AI - Standard tissue AVR converted to root replacement for paravalvular leak. 3 pump runs remarkably well tolerated. Tubes and wires out. Antithrombotic prophylaxis as per rhythm. 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 Postop LV systolic fx preserved. Diuresing moderate fluid overload with stable renal fx. Lasix, BB and ACEI as tolerated. Inpt rehab for reconditioning. Incidental single vessel CAD - s/p CABG1 with arterial graft. Secondary prevention w statin and BB. ASA avoided d/t hx NSAID related gastritis. Postop PAF - Refractory to amiodarone and escalating doses BB. EP cards to see. Interim addition of CCB. Antithrombotic prophylaxis with Coumadin for [id number]- VASc score of 5. Acute expected blood loss anemia with coagulopathy and thrombocytopenia - Expected given multiple CPB runs. Delayed rebound in plt counts s/p 4u PRBC, 2u FFP and 2u Plts. No evidence active bleeding. HIT Ab neg. VTE prophylaxis as per rhythm. RAD - Stable. No post extubation exacerbation. MDIs resumed. Nocturnal hypoxemia - KEVIN suspected by preop pulm eval. Suppl O2 hs rec but insufficient time before surg to get supplies ordered. Formal sleep study planned once recovered from surgery. Plan: Cards consult for assistance AF management. Inc oral metoprolol to 75 mg BID. Add cardizem 60 mg TID. Cont lasix 40mg IV BID. Trial metolazone if UOP remains suboptimal. Hold Coumadin for one more day. Dispo - Inpt rehab ([facility]) on Mon if medical regimen stable. 11/30/16 09:04 Subjective: Feeling a bit tired today with "heavy" legs while walking. Objective: Vital Signs Temp Pulse Resp BP Pulse Ox 36.8 C 108 H 18 135/76 H 96 11/30/16 07:18 11/30/16 07:18 11/30/16 07:18 11/30/16 07:18 11/30/16 07:18 Laboratory Results 11/29/16 05:20 11/30/16 03:20 11/29/16 11/30/16 12/01/16 05:59 05:59 05:59 Intake Total 1520 500 180 Output Total 1400 900 100 Balance 120 -400 80 PT 24.7 SEC (12.0-15.0) H 11/30/16 03:20 INR 2.21 (0.83-1.16) H 11/30/16 03:20 In and out of AF with VVR despite addtl IV BB and amio. Meager response to IV lasix despite adequate SBP and stable Cr. INR falling appropriately. Physical Exam - Physical Exam General Appearance: alert, no apparent distress Respiratory: lungs clear Cardiac/Chest: irregularly irregular, other (Sternotomy and CT sites ok) Abdomen: non-tender, soft Skin: warm/dry Extremities: swelling (1+ gen) ICD10 Worksheet Patient Problems: Problems Problem Status Diagnosed Acute blood loss anemia Acute Consumptive coagulopathy Acute Postoperative atrial fibrillation Acute S/P CABG x 1 Acute S/P aortic root replacement Acute Aortic insufficiency Chronic Hypertension Chronic Reactive airway disease Chronic
[2016-11-30] MEDS: TIOTROPIUM INHALER 18 MCG/DOSE 5 DOSE/MDI IH SCH (09:08)
[2016-11-30] MEDS: DILTIAZEM 60 MG TAB PO SCH ×2 (09:39→17:29)
--- NOTE | 2016-11-30 12:39 | PDCARPN ---
Cardiology Progress Note Chief Complaint: Atrial fibrillation with rapid ventricular response Assessment/Plan: Assessment: 1. Status post bioprosthetic aortic valve, redo surgery 2. Postoperative atrial fibrillation, difficult to rate control Plan: -Continue anticoagulation, target INR 2-2.5 -Currently on amiodarone and metoprolol not achieving adequate rate control. Continue amiodarone for 1 month. Continue metoprolol. Add diltiazem 60 mg three times daily and titrate upwards as tolerated if necessary -We will follow the patient with you, I have signed out the patient to Dr. Montoya. Patient's safety manager Dr. Lopez is rounding this weekend and will see her. 11/30/16 12:37 Subjective: Patient symptomatic with atrial fibrillation with ventricular rates in 120s to 130s. Symptoms include palpitations and shortness of breath. She also has fatigue. Currently she is in sinus rhythm and feeling well. Time Spent With Patient: 20 minutes Objective: Vital Signs (8 Hrs) Temp Pulse Resp BP Pulse Ox 11/30/16 11:24 36.8 C 75 25 H 109/63 96 11/30/16 09:39 110 H 123/80 H 11/30/16 07:18 36.8 C 108 H 18 135/76 H 96 Intake/Output (24 Hrs) 11/29/16 11/30/16 12/01/16 11:59 11:59 11:59 Intake Total 1520 680 Output Total 2000 1400 Balance -480 -720 Intake: Oral (ml) 1500 680 IV Intake (ml) 20 Output: Urine (ml) 2000 1400 Toilet 1300 600 Bedpan 700 800 Other: Weight 72.4 kg 71.2 kg Intake Quantity Yes Sufficient Number of Voids Toilet 1 Bedpan 1 1 Number of Stools Bedpan 1 Result Diagrams: 11/29/16 05:20 11/30/16 03:20 Telemetry: Paroxysmal atrial fibrillation, ventricular rates in 120 to 130s Echocardiogram: Report reviewed, left ventricular ejection fraction 45-50%, bioprosthetic aortic valve, moderate tricuspid regurgitation ICD10 Worksheet Patient Problems: Problems Problem Status Diagnosed Acute blood loss anemia Acute Consumptive coagulopathy Acute Postoperative atrial fibrillation Acute S/P CABG x 1 Acute S/P aortic root replacement Acute Aortic insufficiency Chronic Hypertension Chronic Reactive airway disease Chronic
[2016-11-30] MEDS ORDERED: METOLAZONE 2.5 MG TAB PO ONE (14:30)
[2016-11-30] MEDS: traMADol 50 MG TAB PO PRN (15:14)
[2016-11-30] MEDS: SENNOSIDES/DOCUSATE SODIUM TAB PO PRN (15:14)
[2016-11-30] MEDS: MONTELUKAST SODIUM 10 MG TAB PO SCH (17:29)
[2016-11-30 20:35] LABS: POTASSIUM 3.8 mEq/L (3.5-5.2)
[2016-11-30] MEDS ORDERED: POTASSIUM CL 20 MEQ TAB PO ONE (21:00)
[2016-11-30] MEDS: LORazepam 0.5 MG TAB PO SCH (21:11)
[2016-11-30] MEDS ORDERED: DILTIAZEM 60 MG TAB PO SCH (22:00)
[2016-12-01] MEDS: HYDROCODONE/APAP 5/325 TAB PO PRN ×4 (04:36→21:29)
[2016-12-01 06:48] LABS: HEMATOCRIT 31.3 % (38.0-47.0); HEMOGLOBIN 10.5 g/dL (12.6-16.3); MEAN CELL HEMOGLOBIN 31.5 pg (27.9-34.1); MEAN CELL HEMOGLOBIN CONCENTR. 33.5 g/dL (32.4-36.7); RED BLOOD CELL COUNT 3.33 10^6/uL (4.18-5.33); RED CELL DISTRIBUTION WIDTH 13.7 % (11.5-15.2)
[2016-12-01 07:45] LABS: ALANINE AMINOTRANSFERASE 35 IU/L (9-52); ALBUMIN 2.1 g/dL (3.5-5.0); ALKALINE PHOSPHATASE 53 IU/L (38-126); ANION GAP 5 mEq/L (8-16); ASPARTATE AMINOTRANSFERASE 28 IU/L (14-46); BILIRUBIN,TOTAL 0.9 mg/dL (0.1-1.4); CALCIUM 7.3 mg/dL (8.5-10.4); CARBON DIOXIDE 34 mEq/l (22-31); CHLORIDE 92 mEq/L (97-110); CREATININE 0.6 mg/dL (0.6-1.0); GLOMERULAR FILTRATION RATE > 60; GLUCOSE 81 mg/dL (70-100); POTASSIUM 3.4 mEq/L (3.5-5.2); SODIUM 131 mEq/L (134-144); TOTAL PROTEIN 4.5 g/dL (6.3-8.2)
[2016-12-01] MEDS ORDERED: POTASSIUM CL 20 MEQ TAB PO ONE (08:04)
[2016-12-01] MEDS ORDERED: MAGNESIUM SULF 1 GM/DEXTROSE 100 ML IV ONE (08:10)
--- NOTE | 2016-12-01 08:14 | DX ---
Portable Chest 6:30 AM History: Follow-up open heart surgery, atelectasis and pleural effusion Comparison: November 27 Findings: Inspiratory phase is slightly less. There is increased left lower lobe atelectasis. Graynes s in the right lower lung suggests a posterior layering effusion. A right jugular venous catheter rem ains in place. EKG leads, oxygen tubing, CABG clips, and atrial appendage clip and a single median st ernotomy wire remain in place. There is no pneumothorax. Impression: Increasing left lower lobe atelectasis. Stable right effusion.
[2016-12-01] MEDS ORDERED: DILTIAZEM 25 MG/5 ML VIAL IVP SCH (08:30)
--- NOTE | 2016-12-01 08:36 | SOAPPROG ---
SOAP Progress Note Assessment/Plan: Assessment: POD#7 AVR/root replacment w #23 Medtronic freestyle porcine root, CABG x 1 (EMILY-LAD), AtriClip ligation left atrial appendage Sx severe AI - Standard tissue AVR converted to root replacement for paravalvular leak. 3 pump runs remarkably well tolerated. Tubes and wires out. Antithrombotic prophylaxis as per rhythm. Valvular cardiomyopathy with mild LVDD - Functional class 3. Postop LV systolic fx preserved. Diuresing moderate fluid overload with stable renal fx. Lasix, BB and ACEI as tolerated. Inpt rehab for reconditioning. Incidental single vessel CAD - s/p CABG1 with arterial graft. Secondary prevention w statin and BB. ASA avoided d/t hx NSAID related gastritis. Postop PAF - Resistant to amiodarone and escalating doses BB. EP cards consulted. Adjunctive CCB started with improvement in rate control. Colchicine added for potential hyper-inflammatory process. Antithrombotic prophylaxis with Coumadin for [id number] score of 5. Target INR 2-2.5. Duration TBD. Acute expected blood loss anemia with coagulopathy and thrombocytopenia - Expected given multiple CPB runs. 4u PRBC, 2u FFP and 2u Plts transfused. Delayed platelet rebound without evidence active bleeding. HIT Ab neg. VTE prophylaxis as per rhythm. RAD - Stable. No post extubation exacerbation. MDIs resumed. Nocturnal hypoxemia - KEVIN suspected by preop diony meyers. Suppl O2 hs rec but insufficient time before surg to get supplies ordered. Formal sleep study planned once recovered from surgery. Plan: Replete K. Replete Mg. Cont amiodarone 200 mg BID. Cont metoprolol 75 mg BID. Inc cardizem to 60 mg QID. Change lasix to once daily orally. Coumadin 1 mg today. Trial colchicine 0.6 mg BID. Cont inc activity as tolerated. Dispo - Inpt rehab ([facility]) tomorrow if medical regimen stable. 12/01/16 08:26 Subjective: Better today. Slept well. Feels peppier. Limbs not as "heavy" with walking. Hopeful for discharge tomorrow. Objective: Vital Signs Temp Pulse Resp BP Pulse Ox 36.8 C 86 18 127/80 H 93 12/01/16 07:14 12/01/16 07:14 12/01/16 07:14 12/01/16 07:14 12/01/16 07:14 Laboratory Results 12/01/16 06:15 12/01/16 06:15 11/30/16 12/01/16 12/02/16 05:59 05:59 05:59 Intake Total 500 480 140 Output Total 900 3000 400 Balance -400 -2520 -260 PT 24.7 SEC (12.0-15.0) H 11/30/16 03:20 INR 2.21 (0.83-1.16) H 11/30/16 03:20 Stretches of SR 70s-80s with PACs. Episodic AF into 120s. Holding BP > 100 on TID cardizem. Vigorous diuresis with attendant electrolyte losses. Wt down 1.5 kg. Still +6 kg overall. CXR-> hypovent with bibasilar atelectasis, no pulm vasc congestion, tiny residual pl eff. LFTs WNL. - Pending Discharge Pending Discharge Within 24 Hours: Yes Pending Discharge Date: 12/02/16 Pending Discharge Time: 11:00 Physical Exam - Physical Exam General Appearance: alert, no apparent distress Respiratory: lungs clear Cardiac/Chest: tachycardia, irregularly irregular, other (Sternum grossly stable. Sternotomy and CT sites ok) Abdomen: non-tender, soft Skin: warm/dry Extremities: swelling (1+ gen) ICD10 Worksheet Patient Problems: Problems Problem Status Diagnosed Acute blood loss anemia Acute Consumptive coagulopathy Acute Postoperative atrial fibrillation Acute S/P CABG x 1 Acute S/P aortic root replacement Acute Aortic insufficiency Chronic Hypertension Chronic Reactive airway disease Chronic
[2016-12-01] MEDS: METOPROLOL TARTRATE 50 MG TAB PO SCH ×2 (08:57→20:07)
[2016-12-01] MEDS: PANTOPRAZOLE SODIUM 40 MG TAB PO SCH (08:58)
[2016-12-01] MEDS: AMIODARONE HCL 200 MG TAB PO SCH ×2 (08:58→20:07)
[2016-12-01] MEDS: ATORVASTATIN CALCIUM 20 MG TAB PO SCH (08:58)
[2016-12-01] MEDS ORDERED: POTASSIUM CL 20 MEQ TAB PO SCH ×2 (09:00)
[2016-12-01] MEDS: COLCHICINE 0.6 MG CAP/TAB PO SCH ×2 (09:05→20:07)
[2016-12-01 09:17] LABS: INR 1.69 (0.83-1.16); PROTIME(PATIENT) 19.9 SEC (12.0-15.0)
[2016-12-01] MEDS: FUROSEMIDE 20 MG TAB PO SCH (10:21)
[2016-12-01] MEDS: TIOTROPIUM INHALER 18 MCG/DOSE 5 DOSE/MDI IH SCH (10:28)
[2016-12-01] MEDS: BECLOMETHASONE QVAR 80 MDI IH SCH ×2 (10:28→21:21)
[2016-12-01] MEDS ORDERED: DILTIAZEM 60 MG TAB PO SCH (12:00)
[2016-12-01 13:12] LABS: POTASSIUM 4.2 mEq/L (3.5-5.2)
[2016-12-01] MEDS ORDERED: WARFARIN SODIUM 1 MG TAB PO ONE (16:00)
[2016-12-01] MEDS: MONTELUKAST SODIUM 10 MG TAB PO SCH (17:41)
[2016-12-01] MEDS: SENNOSIDES/DOCUSATE SODIUM TAB PO PRN (17:53)
[2016-12-01 18:11] LABS: POTASSIUM 4.1 mEq/L (3.5-5.2)
[2016-12-01] MEDS: LORazepam 0.5 MG TAB PO SCH (20:08)
[2016-12-02] MEDS: HYDROCODONE/APAP 5/325 TAB PO PRN ×2 (01:47→17:37)
[2016-12-02 06:02] LABS: INR 1.58 (0.83-1.16); PROTIME(PATIENT) 18.9 SEC (12.0-15.0)
[2016-12-02 06:09] LABS: POTASSIUM 3.5 mEq/L (3.5-5.2)
[2016-12-02] MEDS: METOPROLOL TARTRATE 50 MG TAB PO SCH (07:47)
[2016-12-02] MEDS: FUROSEMIDE 20 MG TAB PO SCH (07:48)
[2016-12-02] MEDS: PANTOPRAZOLE SODIUM 40 MG TAB PO SCH (07:48)
[2016-12-02] MEDS: COLCHICINE 0.6 MG CAP/TAB PO SCH (07:48)
[2016-12-02] MEDS: ATORVASTATIN CALCIUM 20 MG TAB PO SCH (07:48)
[2016-12-02] MEDS: POTASSIUM CL 20 MEQ TAB PO SCH ×2 (07:48→10:15)
[2016-12-02] MEDS: AMIODARONE HCL 200 MG TAB PO SCH (07:48)
--- NOTE | 2016-12-02 08:03 | SOAPPROG ---
SOAP Progress Note Assessment/Plan: POD#8 Root replacment w #23 Medtronic freestyle porcine root, CABG x 1 (EMILY-LAD ), AtriClip ligation left atrial appendage Severe AI s/p #23 Medtronic freestyle porcine root - Stable CAD s/p CABGx1 with arterial graft - BB/Statin Postoperative atrial fibrillation - CHADS2-VASC 5 - Amiodarone/BB/CCB - Will convert Coumadin to Eliquis Acute expected blood loss anemia with coagulopathy, thrombocytopenia - Platelets trending higher, HIT panel negative, monitor Valvular cardiomyopathy with LVDD - Functional class 3. - Diuresis/BB/ACEI as tolerated. RAD - MDIs resumed Nocturnal hypoxemia secondary to suspected KEVIN - Formal sleep study planned once recovered from surgery. Disposition - Plan for SNF today Subjective: Feels well. No complaints this AM. Objective: Vital Signs Temp Pulse Resp BP Pulse Ox 36.8 C 107 H 17 143/89 H 95 12/02/16 07:16 12/02/16 07:16 12/02/16 07:16 12/02/16 07:16 12/02/16 07:16 Laboratory Results 12/01/16 06:15 12/02/16 05:40 12/01/16 12/02/16 12/03/16 05:59 05:59 05:59 Intake Total 480 1360 Output Total 3000 1975 Balance -2520 -615 PT 18.9 SEC (12.0-15.0) H 12/02/16 05:40 INR 1.58 (0.83-1.16) H 12/02/16 05:40 Physical Exam - Physical Exam General Appearance: WD/WN, alert, no apparent distress EENT: No scleral icterus (R), No scleral icterus (L) Neck: normal inspection Respiratory: No respiratory distress Cardiac/Chest: irregularly irregular Abdomen: non-tender, soft, No distended Skin: normal color, warm/dry Extremities: normal range of motion Neuro/Psych: no motor/sensory deficits, alert, normal mood/affect, oriented x 3 ICD10 Worksheet Patient Problems: Problems Problem Status Diagnosed Acute blood loss anemia Acute Consumptive coagulopathy Acute Postoperative atrial fibrillation Acute S/P CABG x 1 Acute S/P aortic root replacement Acute Aortic insufficiency Chronic Hypertension Chronic Reactive airway disease Chronic
[2016-12-02] MEDS: DILTIAZEM 30 MG TAB PO SCH ×2 (09:30→16:26)
--- NOTE | 2016-12-02 10:00 | PDIAF ---
- Diagnosis Diagnosis: s/p aortic root replacement, CABGx1 Code Status: Full Code - Medication Management Discharge Medications: Medications to Continue on Transfer Beclomethasone Qvar 80 [Qvar 80 (*)] 2 puffs IH BID 11/11/16 [Last Taken ] Herbals/Supplements -Info Only 1 ea PO DAILY 11/11/16 [Last Taken Unknown] Montelukast Sodium [Singulair 10 mg (*)] 10 mg PO DAILY@1800 11/11/16 [Last Taken 11/22/16] Tiotropium Inhaler [Spiriva Handihaler] 18 mcg IH DAILY 11/11/16 [Last Taken ] Estrogens,Conjugated [Premarin Vaginal (*)] 1 elizabeth VG TUSA 11/23/16 [Last Taken 11/22/16] LORazepam [Ativan (*)] 0.5 mg PO HS 11/23/16 [Last Taken 11/22/16] Acetaminophen [Tylenol 325mg (*)] 325 - 650 mg PO Q4HRS PRN #0 tab 12/02/16 [ Last Taken Unknown] Amiodarone HCl [Pacerone (*)] 200 mg PO BID #0 tab 12/02/16 [Last Taken Unknown] Apixaban [Eliquis] 2.5 mg PO BID #0 tab 12/02/16 [Last Taken Unknown] Atorvastatin Calcium [Lipitor 20 mg (*)] 20 mg PO DAILY #0 tab 12/02/16 [Last Taken Unknown] Colchicine [Colchicine (*)] 0.6 mg PO BID #0 ea 12/02/16 [Last Taken Unknown] Diltiazem [Cardizem Ir Q6hr] 30 mg PO Q8H #0 tab 12/02/16 [Last Taken Unknown] Furosemide [Lasix 20 MG (*)] 40 mg PO DAILY #0 tab 12/02/16 [Last Taken Unknown] Metoprolol Tartrate [Lopressor 50 mg (*)] 75 mg PO BID #0 tab 12/02/16 [Last Taken Unknown] Polyethylene Glycol 3350 [Miralax 17 gm (*)] 17 gm PO DAILY PRN #0 pkt 12/02/16 [Last Taken Unknown] traMADol [Ultram 50 mg (*)] 50 - 100 mg PO Q4HRS PRN #0 tab 12/02/16 [Last Taken Unknown] Discharge Medications: Refer to the Discharge Home Medication list for PRN reason. PICC Care - Routine: N/A - Orders Services needed: Registered Nurse, Physical Therapy Oxygen: 1L [place] Diet Recommendation: cardiac -low fat low salt, fluid restriction (use comment for amount) (2 Liters) Diet Texture: Regular Texture Diet Weigh Patient: daily Mane: No Wound Care Instructions: Wash wounds with soap and water daily and leave open to air. Activity/Weight Bearing Restrictions: - Sternal precautions x 4 weeks. - No lifting greater than 10 pounds with an outstretched arm. - No push/pull activities. - No driving. Additional: Patient has atrial fibrillation with rates up to 120s-130s at times. Please call [facility] ([phone]) with any questions regarding heart rate as we can change the patient's medications over the phone. Please do not send to ER if heart rate is 130 without first calling [facility]. - Labs/Radiology BMP Date: 11/07/16 - Follow Up Care Current Providers and Referrals: STEPH PERRY [Primary Care Provider] - Shree Garduno DO [Doctor of Osteopathy] - 12/06/16 10:15 am Rome Lopez MD [Medical Doctor] - 3 days of d/c SNF/Rehab
--- NOTE | 2016-12-02 10:39 | PDIAF ---
- Diagnosis Diagnosis: s/p aortic root replacement, CABGx1 Code Status: Full Code - Medication Management Discharge Medications: Medications to Continue on Transfer Beclomethasone Qvar 80 [Qvar 80 (*)] 2 puffs IH BID 11/11/16 [Last Taken ] Herbals/Supplements -Info Only 1 ea PO DAILY 11/11/16 [Last Taken Unknown] Montelukast Sodium [Singulair 10 mg (*)] 10 mg PO DAILY@1800 11/11/16 [Last Taken 11/22/16] Tiotropium Inhaler [Spiriva Handihaler] 18 mcg IH DAILY 11/11/16 [Last Taken ] Estrogens,Conjugated [Premarin Vaginal (*)] 1 elizabeth VG TUSA 11/23/16 [Last Taken 11/22/16] LORazepam [Ativan (*)] 0.5 mg PO HS 11/23/16 [Last Taken 11/22/16] Acetaminophen [Tylenol 325mg (*)] 325 - 650 mg PO Q4HRS PRN #0 tab 12/02/16 [ Last Taken Unknown] Amiodarone HCl [Pacerone (*)] 200 mg PO BID #0 tab 12/02/16 [Last Taken Unknown] Apixaban [Eliquis] 2.5 mg PO BID #0 tab 12/02/16 [Last Taken Unknown] Atorvastatin Calcium [Lipitor 20 mg (*)] 20 mg PO DAILY #0 tab 12/02/16 [Last Taken Unknown] Diltiazem [Cardizem Ir Q6hr] 30 mg PO Q8H #0 tab 12/02/16 [Last Taken Unknown] Furosemide [Lasix 20 MG (*)] 40 mg PO DAILY #0 tab 12/02/16 [Last Taken Unknown] Metoprolol Tartrate [Lopressor 50 mg (*)] 75 mg PO BID #0 tab 12/02/16 [Last Taken Unknown] traMADol [Ultram 50 mg (*)] 50 - 100 mg PO Q4HRS PRN #0 tab 12/02/16 [Last Taken Unknown] Discharge Medications: Refer to the Discharge Home Medication list for PRN reason. PICC Care - Routine: N/A - Orders Services needed: Registered Nurse, Physical Therapy Oxygen: 1L [place] Diet Recommendation: cardiac -low fat low salt, fluid restriction (use comment for amount) (2 Liters) Diet Texture: Regular Texture Diet Weigh Patient: daily Mane: No Wound Care Instructions: Wash wounds with soap and water daily and leave open to air. Activity/Weight Bearing Restrictions: - Sternal precautions x 4 weeks. - No lifting greater than 10 pounds with an outstretched arm. - No push/pull activities. - No driving. Additional: Patient has atrial fibrillation with rates up to 120s-130s at times. Please call [facility] ([phone]) with any questions regarding heart rate as we can change the patient's medications over the phone. Please do not send to ER if heart rate is 130 without first calling [facility]. - Labs/Radiology BMP Date: 11/07/16 - Follow Up Care Current Providers and Referrals: STEPH PERRY [Primary Care Provider] - Shree Garduno DO [Doctor of Osteopathy] - 12/06/16 10:15 am Rome Lopez MD [Medical Doctor] - 3 days of d/c SNF/Rehab
[2016-12-02] MEDS: TIOTROPIUM INHALER 18 MCG/DOSE 5 DOSE/MDI IH SCH (10:46)
[2016-12-02] MEDS: BECLOMETHASONE QVAR 80 MDI IH SCH (10:47)
[2016-12-02 13:35] LABS: POTASSIUM 4.5 mEq/L (3.5-5.2)
--- NOTE | 2016-12-02 14:23 | PDIAF ---
- Diagnosis Diagnosis: s/p aortic root replacement, CABGx1 Code Status: Full Code - Medication Management Discharge Medications: Medications to Continue on Transfer Beclomethasone Qvar 80 [Qvar 80 (*)] 2 puffs IH BID 11/11/16 [Last Taken ] Herbals/Supplements -Info Only 1 ea PO DAILY 11/11/16 [Last Taken Unknown] Montelukast Sodium [Singulair 10 mg (*)] 10 mg PO DAILY@1800 11/11/16 [Last Taken 11/22/16] Tiotropium Inhaler [Spiriva Handihaler] 18 mcg IH DAILY 11/11/16 [Last Taken ] Estrogens,Conjugated [Premarin Vaginal (*)] 1 elizabeth VG TUSA 11/23/16 [Last Taken 11/22/16] LORazepam [Ativan (*)] 0.5 mg PO HS 11/23/16 [Last Taken 11/22/16] Acetaminophen [Tylenol 325mg (*)] 325 - 650 mg PO Q4HRS PRN #0 tab 12/02/16 [ Last Taken Unknown] Amiodarone HCl [Pacerone (*)] 200 mg PO BID #0 tab 12/02/16 [Last Taken Unknown] Apixaban [Eliquis] 2.5 mg PO BID #0 tab 12/02/16 [Last Taken Unknown] Atorvastatin Calcium [Lipitor 20 mg (*)] 20 mg PO DAILY #0 tab 12/02/16 [Last Taken Unknown] Diltiazem [Cardizem Ir Q6hr] 30 mg PO Q8H #0 tab 12/02/16 [Last Taken Unknown] Furosemide [Lasix 20 MG (*)] 40 mg PO DAILY #0 tab 12/02/16 [Last Taken Unknown] Metoprolol Tartrate [Lopressor 50 mg (*)] 75 mg PO BID #0 tab 12/02/16 [Last Taken Unknown] Potassium Chloride 40 meq PO DAILY #0 tablet.er 12/02/16 [Last Taken Unknown] traMADol [Ultram 50 mg (*)] 50 - 100 mg PO Q4HRS PRN #0 tab 12/02/16 [Last Taken Unknown] Discharge Medications: Refer to the Discharge Home Medication list for PRN reason. PICC Care - Routine: N/A - Orders Services needed: Registered Nurse, Physical Therapy Oxygen: 1L [place] Diet Recommendation: cardiac -low fat low salt, fluid restriction (use comment for amount) (2 Liters) Diet Texture: Regular Texture Diet Weigh Patient: daily Mane: No Wound Care Instructions: Wash wounds with soap and water daily and leave open to air. Activity/Weight Bearing Restrictions: - Sternal precautions x 4 weeks. - No lifting greater than 10 pounds with an outstretched arm. - No push/pull activities. - No driving. Additional: Patient has atrial fibrillation with rates up to 120s-130s at times. Please call [facility] ([phone]) with any questions regarding heart rate as we can change the patient's medications over the phone. Please do not send to ER if heart rate is 130 without first calling [facility]. - Labs/Radiology BMP Date: 12/05/16 (Results faxed to Echo Kaufman at [facility]) Imaging Orders: CXR to be done at [facility] on 12/06/15 prior to follow-up. - Follow Up Care Current Providers and Referrals: STEPH PERRY [Primary Care Provider] - Shree Garduno DO [Doctor of Osteopathy] - 12/06/16 10:15 am Rome Lopez MD [Medical Doctor] - 3 days of d/c SNF/Rehab
[2016-12-02 16:22] VITALS: BP 152/90; PULSE 93; RESP 19; TEMP 98.6; O2SAT 95
[2016-12-02] MEDS ORDERED: ONDANSETRON DISINTEGRATING 4 MG TAB PO ONE (16:30)
[2016-12-02] MEDS ORDERED: CALCIUM CARBONATE 500 MG CHEWABLE TAB PO ONE (16:30)
[2016-12-03] MEDS ORDERED: APIXABAN 2.5 MG TAB PO SCH (09:00)
--- NOTE | 2016-12-06 08:52 | PDDCSUM ---
Discharge Summary Discharge Summary: ADMISSION DATE: 11/23/16 DISCHARGE DATE: 12/02/16 ADMISSION DX: 1. Severe aortic insufficiency 2. CAD DISCHARGE DX: 1. Severe aortic insufficiency 2. CAD 3. Post-operative atrial fibrillation 4. Acute blood loss anemia with coagulopathy SECONDARY DX: 1. RAD 2. Nocturnal hypoxemia with suspected KEVIN CONSULTS: 1. EP: Angelo Gottlieb PROCEDURES: 11/24/16, Shree Garduno: 1. CABGx1 (ESCOBEDO-LAD) 2. Aortic root replacement with #23 freestyle prosthesis 3. AtraClip left atrial appendage 11/23/16, Rome Lopez 1. [facility], coronary angiography HPI: Pt with known severe AI admitted the day before her scheduled AVR for risk stratification via [facility]. HOSPITAL COURSE: The patient underwent the procedures above and was transferred to the ICU in stable condition. Please see the operative report for further details. The patient developed post-operative atrial fibrillation and beta-blockers, calcium- channel blockers, and amiodarone were used for rate control while Eliquis was used for thromboprophylaxis. CONDITION - Good DISPOSITION: - [facility] in [place] ACTIVITY: Pt was instructed on sternal precautions, activity limitations, and which problems to call [facility] with. Please see Discharge Plan in chart for specifics. D/C MEDICATIONS: 1. Beclomethasone Qvar 80 [Qvar 80 (*)] 2 puffs IH BID 2. Herbals/Supplements -Info Only 1 ea PO DAILY 3. Montelukast Sodium [Singulair 10 mg (*)] 10 mg PO DAILY 4. Tiotropium Inhaler [Spiriva Handihaler] 18 mcg IH DAILY 5. Estrogens,Conjugated [Premarin Vaginal (*)] 1 elizabeth VG TUSA 6. LORazepam [Ativan (*)] 0.5 mg PO HS 11/23/16 7. Acetaminophen [Tylenol 325mg (*)] 325 - 650 mg PO Q4HRS PRN 8. Amiodarone HCl [Pacerone (*)] 200 mg PO BID 9. Apixaban [Eliquis] 2.5 mg PO 10. Atorvastatin Calcium [Lipitor 20 mg (*)] 20 mg PO DAILY 11. Diltiazem [Cardizem Ir Q6hr] 30 mg PO Q8H 12. Furosemide [Lasix 20 MG (*)] 40 mg PO DAILY 13. Metoprolol Tartrate [Lopressor 50 mg (*)] 75 mg PO BID 14. Potassium Chloride 40 meq PO DAILY 15. traMADol [Ultram 50 mg (*)] 50 - 100 mg PO Q4HRS PRN PENDING STUDIES/LABS: 1. 12/05/16: BMP - Result faxed to [facility] 2. 12/06/16: CXR F/U APPOINTMENTS: - Dr. Shree Garduno - 12/06/16, 10:15 AM - Dr. Rome Lopez - To be arranged at surgical follow-up
== END 2016-12-02 17:50 | DRG 217 ==
LOC: FCATH 13:20 → OBSVTOIN 16:18 → F2W 16:18 → EDSTATUS 11-24 07:15 → F2N 11-24 07:15 → EDSTATUS 11-24 07:15 → F2N 11-24 16:25 → F2W 11-25 14:52
PROVIDERS: ADMIT Thoracic Surgery (Cardiothoracic Vascular Surgery); ATTEND Thoracic Surgery (Cardiothoracic Vascular Surgery)
PROC: B2151ZZ Fluoroscopy of Left Heart using Low Osmolar Contrast (ICD-10-PCS; 2016-11-23)
PROC: 4A023N7 Measurement of Cardiac Sampling and Pressure, Left Heart, Percutaneous Approach (ICD-10-PCS; 2016-11-23)
PROC: B2111ZZ Fluoroscopy of Multiple Coronary Arteries using Low Osmolar Contrast (ICD-10-PCS; 2016-11-23)
PROC: 5A1221Z Performance of Cardiac Output, Continuous (ICD-10-PCS; principal; 2016-11-24 07:15)
PROC: 02L70ZK Occlusion of Left Atrial Appendage, Open Approach (ICD-10-PCS; principal; 2016-11-24 07:15)
PROC: 02RF08Z Replacement of Aortic Valve with Zooplastic Tissue, Open Approach (ICD-10-PCS; principal; 2016-11-24 07:15)
PROC: 02W Heart and Great Vessels, Revision (ICD-10-PCS; principal; 2016-11-24 07:15)
PROC: 02100Z9 Bypass Coronary Artery, One Artery from Left Internal Mammary, Open Approach (ICD-10-PCS; principal; 2016-11-24 07:15)
DX: I35.2 Nonrheumatic aortic (valve) stenosis with insufficiency (principal); T82.03XA Leakage of heart valve prosthesis, initial encounter; I25.10 Atherosclerotic heart disease of native coronary artery without angina pectoris; I48.91 Unspecified atrial fibrillation; G47.33 Obstructive sleep apnea (adult) (pediatric); R09.02 Hypoxemia; I50.9 Heart failure, unspecified; D62 Acute posthemorrhagic anemia; I10 Essential (primary) hypertension; J45.909 Unspecified asthma, uncomplicated
CPT/HCPCS: 82947-QW; 86022-90; 97110-GP; 97112-GP; 97116-GP; 97162-GP; 97165-GO; 97530-GO; 97530-GP; 97535-GO; C1763; C1768; C1769; G8978-GP-CK; G8979-GP-CI; G8987-GO-CK; G8988-GO-CI; G8989-GO-CJ; J0153; J0282; J0461; J0690; J1265; J1644; J1815; J1885; J2001; J2150; J2250; J2260; J2370; J2405; J2440; J2704; J2720; J2930; J3010; J3475; J7060; P9016; P9017; P9035; P9041; Q9967

== ENCOUNTER → 2017-01-02 | Outpatient (CLI) | payer OTHER | LOC: BHLMT 13:15 | PROVIDERS: ATTEND Internal Medicine Cardiovascular Disease | DX: I48.91 Unspecified atrial fibrillation (principal); R53.83 Other fatigue; Z95.2 Presence of prosthetic heart valve | CPT/HCPCS: 93005-PO ==

== ENCOUNTER → 2018-03-19 | Outpatient (CLI) | payer OTHER | LOC: BHLMT 10:15 | PROVIDERS: ATTEND Internal Medicine Cardiovascular Disease | DX: I25.10 Atherosclerotic heart disease of native coronary artery without angina pectoris (principal); R60.9 Edema, unspecified; I10 Essential (primary) hypertension; E78.5 Hyperlipidemia, unspecified; Z95.2 Presence of prosthetic heart valve | CPT/HCPCS: 93005-PO ==